=== PATIENT | male | born 1945 | race Caucasian/White ===

== ENCOUNTER 2018-05-30 19:00 | Inpatient (IN) ==
[2018-05-30] MEDS ORDERED: KETOROLAC 30 MG/1 ML VIAL IV STA (19:31)
[2018-05-30 20:26] LABS: Basophils # 0.1 10*3/uL (0.0-0.2); Basophils % 0.6 % (0.0-0.8); Eosinophils # 0.2 10*3/uL (0.0-0.87); Eosinophils % 1.4 % (0.00-10.9); Hematocrit 37.3 VOL% (42.0-52.0); Hemoglobin 11.8 GM/DL (14.0-18.0); Immature Granulocytes % 0.7 %; Immature Granulocytes Absolute 0.09 #; Lymphocytes # 1.5 10*3/uL (1.4-4.0); Lymphocytes % 11.6 % (21.2-54.2); Mean Corpuscular HGB Conc 31.6 GM/DL (32-36); Mean Corpuscular Hemoglobin 30 PG (27-34); Mean Corpuscular Volume 95.6 FL (87-102); Mean Platelet Volume 13.5 FL (9.6-12.0); Monocytes # 0.8 10*3/uL (0.11-0.8); Monocytes % 5.8 % (1.7-12.7); Neutrophils # 10.3 10*3/uL (1.4-7.4); Neutrophils % 79.9 % (38.7-73.9); Platelet Count 235 T/CUMM (130-400); Red Cell Distribution Width 13.2 % (9.3-17.3); White Blood Count 12.9 T/CUMM (4-12)
[2018-05-30 20:47] LABS: Alanine Aminotransferase 30 U/L (16-61); Albumin 3.7 G/DL (3.4-5.0); Alkaline Phosphatase 61 U/L (45-117); Aspartate Amino Transferase 27 U/L (0-37); Bilirubin,Total < 0.39 MG/DL (0.2-1.0); Blood Urea Nitrogen 26 MG/DL (7-18); Calcium 8.5 MG/DL (8.5-10.1); Glucose 257 MG/DL (74-106); Osmolality,Calculated 290.5 MOS/KG (273-304); Sodium 139 MMOL/L (136-145); Total Protein 6.9 G/DL (6.4-8.3)
[2018-05-30 20:54] LABS: Potassium 6.5 MMOL/L (3.5-5.1)
[2018-05-30] MEDS ORDERED: CALCIUM GLUCONATE 2,000 MG in SODIUM CHLORIDE 0.9% 100 ML IV ONE (21:00)
[2018-05-30] MEDS ORDERED: INSULIN REGULAR 100 UNIT/ML IV STA (21:01)
[2018-05-30] MEDS ORDERED: DEXTROSE 50% 25 GM/50 ML VIAL IV STA (21:01)
[2018-05-30] MEDS ORDERED: SODIUM BICARBONATE 50 MEQ/50 ML VIAL IV STA (21:01)
[2018-05-30] MEDS ORDERED: DEXTROSE 50% 25 GM/50 ML SYRINGE IV ONE (21:08)
[2018-05-30] MEDS ORDERED: LORazepam 2 MG/1 ML VIAL IV STA (21:08)
[2018-05-30] MEDS ORDERED: SODIUM BICARBONATE 50 MEQ/50 ML SYRINGE IV ONE (21:08)
[2018-05-30] MEDS ORDERED: CALCIUM GLUCONATE 1,000 MG/10 ML VIAL IV ONE (21:08)
[2018-05-30] MEDS ORDERED: DEXTROSE 50% 25 GM/50 ML VIAL IV PRN (22:04)
[2018-05-30] MEDS ORDERED: ONDANSETRON 4 MG/2 ML VIAL IV PRN (22:04)
[2018-05-30] MEDS ORDERED: GLUCAGON 1 MG VIAL IM PRN (22:04)
[2018-05-30] MEDS ORDERED: SODIUM CHLORIDE 0.9% 1,000 ML IV SCH (22:30)
[2018-05-30] MEDS: SODIUM POLYSTYRENE SULFATE 15 GM/60 ML BOTTLE PO SCH (23:39)
[2018-05-31 03:13] LABS: Apearance,Urine CLEAR (Clear); Bilirubin,Urine Negative (Negative); Blood, Urine Negative (Negative); Glucose,Urine (UA) >=500 mg/dL (Negative); Ketones,Urine Negative (Negative); Nitrite,Urine Negative (Negative); Protein,Urine Negative; Urine Color Yellow (Yellow); Urine Specific Gravity 1.011 (1.001-1.035); Urine Urobilinogen < 2.0 EU/DL (0.2-1.0); WBC,Urine <1 /HPF (0-6)
[2018-05-31] MEDS: SODIUM POLYSTYRENE SULFATE 15 GM/60 ML BOTTLE PO SCH ×4 (04:52→16:55)
[2018-05-31 05:00] LABS: Basophils # 0.1 10*3/uL (0.0-0.2); Basophils % 0.6 % (0.0-0.8); Eosinophils # 0.1 10*3/uL (0.0-0.87); Eosinophils % 1.6 % (0.00-10.9); Hematocrit 35.8 VOL% (42.0-52.0); Hemoglobin 11.3 GM/DL (14.0-18.0); Immature Granulocytes % 0.7 %; Immature Granulocytes Absolute 0.06 #; Lymphocytes # 1.7 10*3/uL (1.4-4.0); Lymphocytes % 18.7 % (21.2-54.2); Mean Corpuscular HGB Conc 31.6 GM/DL (32-36); Mean Corpuscular Hemoglobin 30 PG (27-34); Mean Corpuscular Volume 94.5 FL (87-102); Mean Platelet Volume 13.6 FL (9.6-12.0); Monocytes # 0.7 10*3/uL (0.11-0.8); Monocytes % 7.4 % (1.7-12.7); Neutrophils # 6.3 10*3/uL (1.4-7.4); Platelet Count 216 T/CUMM (130-400); Red Blood Count 3.79 MC/CUMM (3.8-5.5); Red Cell Distribution Width 13.1 % (9.3-17.3); White Blood Count 8.8 T/CUMM (4-12)
[2018-05-31 05:19] LABS: Potassium 5.1 MMOL/L (3.5-5.1)
[2018-05-31] MEDS ORDERED: MORPHINE 4 MG/1 ML VIAL IV PRN (09:04)
[2018-05-31] MEDS ORDERED: ACETAMINOPHEN 325 MG TABLET PO PRN (09:05)
[2018-05-31] MEDS ORDERED: ENOXAPARIN 30 MG/0.3 ML SYRINGE SUBCUT SCH (09:30)
[2018-05-31] MEDS: INSULIN REGULAR 100 UNIT/ML SUBCUT SCH ×4 (10:03→21:14)
[2018-05-31] MEDS: ALFUZOSIN 10 MG TABLET PO SCH (13:05)
[2018-05-31] MEDS: DOCUSATE SODIUM 100 MG CAPSULE PO SCH ×2 (13:06→21:14)
[2018-05-31] MEDS: SODIUM BICARB INJ 100 MEQ in DEXTROSE 5% 1,000 ML IV SCH (13:11)
[2018-05-31] MEDS: oxyCODONE/ACETAMINOPHEN 5-325 MG TABLET PO SCH ×2 (14:20→21:13)
[2018-06-01 05:07] LABS: Calcium 8.4 MG/DL (8.5-10.1); Osmolality,Calculated 294.1 MOS/KG (273-304); Potassium 4.7 MMOL/L (3.5-5.1)
[2018-06-01 05:18] LABS: Basophils # 0.1 10*3/uL (0.0-0.2); Basophils % 0.9 % (0.0-0.8); Eosinophils # 0.3 10*3/uL (0.0-0.87); Hematocrit 34.2 VOL% (42.0-52.0); Hemoglobin 10.8 GM/DL (14.0-18.0); Immature Granulocytes % 0.5 %; Immature Granulocytes Absolute 0.04 #; Lymphocytes # 2.2 10*3/uL (1.4-4.0); Lymphocytes % 29.6 % (21.2-54.2); Mean Corpuscular HGB Conc 31.6 GM/DL (32-36); Mean Corpuscular Hemoglobin 30 PG (27-34); Mean Corpuscular Volume 95.8 FL (87-102); Mean Platelet Volume 13.8 FL (9.6-12.0); Monocytes # 0.6 10*3/uL (0.11-0.8); Monocytes % 7.4 % (1.7-12.7); Neutrophils # 4.4 10*3/uL (1.4-7.4); Neutrophils % 57.6 % (38.7-73.9); Platelet Count 196 T/CUMM (130-400); Red Blood Count 3.57 MC/CUMM (3.8-5.5); Red Cell Distribution Width 13.2 % (9.3-17.3); White Blood Count 7.6 T/CUMM (4-12)
[2018-06-01 05:23] LABS: % Iron Saturation 11.2 % (18-50)
[2018-06-01] MEDS: SODIUM POLYSTYRENE SULFATE 15 GM/60 ML BOTTLE PO SCH ×5 (06:57→23:30)
[2018-06-01 07:27] LABS: Parathyroid Hormone Intact 96.2 PG/ML (18.4-80.1)
[2018-06-01] MEDS: ALFUZOSIN 10 MG TABLET PO SCH (08:50)
[2018-06-01] MEDS: DOCUSATE SODIUM 100 MG CAPSULE PO SCH ×2 (08:51→21:08)
[2018-06-01] MEDS: oxyCODONE/ACETAMINOPHEN 5-325 MG TABLET PO SCH ×2 (08:51→21:08)
[2018-06-01] MEDS: SODIUM BICARB INJ 100 MEQ in DEXTROSE 5% 1,000 ML IV SCH (08:52)
[2018-06-01] MEDS: INSULIN REGULAR 100 UNIT/ML SUBCUT SCH ×4 (09:50→23:29)
[2018-06-01] MEDS ORDERED: DEXTROSE 50% 25 GM/50 ML VIAL IV PRN (12:42)
[2018-06-01] MEDS: IRON SUCROSE 200 MG in SODIUM CHLORIDE 0.9% 100 ML IV SCH (14:49)
[2018-06-02] MEDS: SODIUM POLYSTYRENE SULFATE 15 GM/60 ML BOTTLE PO SCH ×4 (03:47→21:39)
[2018-06-02] MEDS: SODIUM BICARB INJ 100 MEQ in DEXTROSE 5% 1,000 ML IV SCH (05:36)
[2018-06-02] MEDS: ALFUZOSIN 10 MG TABLET PO SCH (09:29)
[2018-06-02] MEDS: INSULIN REGULAR 100 UNIT/ML SUBCUT SCH ×4 (09:29→21:13)
[2018-06-02] MEDS: DOCUSATE SODIUM 100 MG CAPSULE PO SCH ×2 (09:29→21:04)
[2018-06-02] MEDS: oxyCODONE/ACETAMINOPHEN 5-325 MG TABLET PO SCH ×2 (09:29→21:04)
[2018-06-02] MEDS: IRON SUCROSE 200 MG in SODIUM CHLORIDE 0.9% 100 ML IV SCH (09:33)
[2018-06-03] MEDS: SODIUM BICARB INJ 100 MEQ in DEXTROSE 5% 1,000 ML IV SCH ×2 (04:46→10:56)
[2018-06-03] MEDS: SODIUM POLYSTYRENE SULFATE 15 GM/60 ML BOTTLE PO SCH (04:46)
[2018-06-03 05:14] LABS: Calcium 8.7 MG/DL (8.5-10.1); Potassium 3.7 MMOL/L (3.5-5.1)
[2018-06-03] MEDS: ALFUZOSIN 10 MG TABLET PO SCH (08:03)
[2018-06-03] MEDS: oxyCODONE/ACETAMINOPHEN 5-325 MG TABLET PO SCH ×2 (08:04→21:49)
[2018-06-03] MEDS: DOCUSATE SODIUM 100 MG CAPSULE PO SCH ×2 (08:04→21:49)
[2018-06-03] MEDS: INSULIN REGULAR 100 UNIT/ML SUBCUT SCH ×4 (08:08→21:51)
[2018-06-03] MEDS: IRON SUCROSE 200 MG in SODIUM CHLORIDE 0.9% 100 ML IV SCH (10:16)
[2018-06-03 10:22] LABS: Basophils % 0.5 % (0.0-0.8); Eosinophils # 0.2 10*3/uL (0.0-0.87); Eosinophils % 3.1 % (0.00-10.9); Hematocrit 34.6 VOL% (42.0-52.0); Hemoglobin 11.2 GM/DL (14.0-18.0); Immature Granulocytes % 0.6 %; Immature Granulocytes Absolute 0.05 #; Lymphocytes # 1.6 10*3/uL (1.4-4.0); Lymphocytes % 20.7 % (21.2-54.2); Mean Corpuscular HGB Conc 32.4 GM/DL (32-36); Mean Corpuscular Hemoglobin 30 PG (27-34); Mean Corpuscular Volume 93.5 FL (87-102); Mean Platelet Volume 12.8 FL (9.6-12.0); Monocytes # 0.5 10*3/uL (0.11-0.8); Monocytes % 6.7 % (1.7-12.7); Neutrophils # 5.3 10*3/uL (1.4-7.4); Neutrophils % 68.4 % (38.7-73.9); Platelet Count 196 T/CUMM (130-400); Red Cell Distribution Width 12.7 % (9.3-17.3); White Blood Count 7.7 T/CUMM (4-12)
[2018-06-03 13:09] LABS: Apearance,Urine CLEAR (Clear); Bilirubin,Urine Negative (Negative); Blood, Urine Negative (Negative); Glucose,Urine (UA) Negative (Negative); Ketones,Urine 5 mg/dL (Negative); Mucus,Urine Occasional /LPF (Occasional); Nitrite,Urine Negative (Negative); Protein,Urine Negative; Urine Color Amber (Yellow); Urine Specific Gravity 1.031 (1.001-1.035); Urine Urobilinogen < 2.0 EU/DL (0.2-1.0); WBC,Urine 1 /HPF (0-6)
[2018-06-04] MEDS: SODIUM BICARB INJ 100 MEQ in DEXTROSE 5% 1,000 ML IV SCH (01:38)
[2018-06-04 04:44] LABS: Basophils # 0.1 10*3/uL (0.0-0.2); Basophils % 0.8 % (0.0-0.8); Eosinophils # 0.2 10*3/uL (0.0-0.87); Eosinophils % 3.1 % (0.00-10.9); Hematocrit 35.7 VOL% (42.0-52.0); Hemoglobin 11.3 GM/DL (14.0-18.0); Immature Granulocytes % 0.5 %; Immature Granulocytes Absolute 0.04 #; Lymphocytes # 1.6 10*3/uL (1.4-4.0); Lymphocytes % 21.4 % (21.2-54.2); Mean Corpuscular HGB Conc 31.7 GM/DL (32-36); Mean Corpuscular Hemoglobin 30 PG (27-34); Mean Corpuscular Volume 93.7 FL (87-102); Mean Platelet Volume 13.3 FL (9.6-12.0); Monocytes # 0.5 10*3/uL (0.11-0.8); Monocytes % 7.1 % (1.7-12.7); Neutrophils % 67.1 % (38.7-73.9); Platelet Count 214 T/CUMM (130-400); Red Blood Count 3.81 MC/CUMM (3.8-5.5); Red Cell Distribution Width 12.9 % (9.3-17.3); White Blood Count 7.5 T/CUMM (4-12)
[2018-06-04 05:22] LABS: Calcium 8.5 MG/DL (8.5-10.1); Osmolality,Calculated 285.4 MOS/KG (273-304); Potassium 3.4 MMOL/L (3.5-5.1)
[2018-06-04] MEDS: INSULIN REGULAR 100 UNIT/ML SUBCUT SCH ×4 (09:48→21:54)
[2018-06-04] MEDS: DOCUSATE SODIUM 100 MG CAPSULE PO SCH ×2 (09:52→21:54)
[2018-06-04] MEDS: oxyCODONE/ACETAMINOPHEN 5-325 MG TABLET PO SCH ×2 (09:52→21:54)
[2018-06-04] MEDS: amLODIPine 10 MG TABLET PO SCH (09:52)
[2018-06-04] MEDS: ALFUZOSIN 10 MG TABLET PO SCH (09:52)
[2018-06-04] MEDS: IRON SUCROSE 200 MG in SODIUM CHLORIDE 0.9% 100 ML IV SCH (10:00)
[2018-06-04] MEDS ORDERED: TISSUE ADHESIVE 1 EACH APPLICATOR TOP ONE (10:37)
[2018-06-04] MEDS ORDERED: ROPIVACAINE 0.5% 30 ML VIAL ONE (10:37)
[2018-06-04] MEDS: LACTATED RINGERS 1,000 ML IV SCH (11:10)
[2018-06-04] MEDS ORDERED: PROPOFOL 200 MG/20 ML VIAL IV ONE (12:31)
[2018-06-04] MEDS ORDERED: fentaNYL 100 MCG/2 ML VIAL ONE (12:31)
[2018-06-05 05:48] LABS: Basophils # 0.1 10*3/uL (0.0-0.2); Basophils % 0.7 % (0.0-0.8); Eosinophils # 0.4 10*3/uL (0.0-0.87); Eosinophils % 4.3 % (0.00-10.9); Hematocrit 35.9 VOL% (42.0-52.0); Hemoglobin 11.3 GM/DL (14.0-18.0); Immature Granulocytes % 0.8 %; Immature Granulocytes Absolute 0.07 #; Lymphocytes # 1.5 10*3/uL (1.4-4.0); Lymphocytes % 16.7 % (21.2-54.2); Mean Corpuscular HGB Conc 31.5 GM/DL (32-36); Mean Corpuscular Hemoglobin 30 PG (27-34); Mean Corpuscular Volume 94.2 FL (87-102); Mean Platelet Volume 13.3 FL (9.6-12.0); Monocytes # 0.7 10*3/uL (0.11-0.8); Neutrophils # 6.2 10*3/uL (1.4-7.4); Neutrophils % 69.5 % (38.7-73.9); Platelet Count 214 T/CUMM (130-400); Red Blood Count 3.81 MC/CUMM (3.8-5.5); Red Cell Distribution Width 12.9 % (9.3-17.3); White Blood Count 8.9 T/CUMM (4-12)
[2018-06-05 06:12] LABS: Calcium 8.7 MG/DL (8.5-10.1); Osmolality,Calculated 283.4 MOS/KG (273-304); Potassium 3.6 MMOL/L (3.5-5.1)
[2018-06-05] MEDS: ALFUZOSIN 10 MG TABLET PO SCH (10:09)
[2018-06-05] MEDS: amLODIPine 10 MG TABLET PO SCH (10:10)
[2018-06-05] MEDS: DOCUSATE SODIUM 100 MG CAPSULE PO SCH ×2 (10:10→21:36)
[2018-06-05] MEDS: oxyCODONE/ACETAMINOPHEN 5-325 MG TABLET PO SCH ×2 (10:10→21:36)
[2018-06-05] MEDS: IRON SUCROSE 200 MG in SODIUM CHLORIDE 0.9% 100 ML IV SCH (10:12)
[2018-06-05] MEDS: INSULIN REGULAR 100 UNIT/ML SUBCUT SCH ×4 (10:21→21:36)
[2018-06-05] MEDS: LACTATED RINGERS 1,000 ML IV SCH (13:10)
[2018-06-06] MEDS: DOCUSATE SODIUM 100 MG CAPSULE PO SCH (10:07)
[2018-06-06] MEDS: ALFUZOSIN 10 MG TABLET PO SCH (10:08)
[2018-06-06] MEDS: oxyCODONE/ACETAMINOPHEN 5-325 MG TABLET PO SCH (10:08)
[2018-06-06] MEDS: amLODIPine 10 MG TABLET PO SCH (10:09)
[2018-06-06] MEDS: INSULIN REGULAR 100 UNIT/ML SUBCUT SCH ×2 (11:02→13:47)
[2018-06-06 12:26] VITALS: BP 136/63
[2018-06-06 17:45] LABS: Bilirubin,Total 0.4 MG/DL (0.2-1.0); Calcium 9.2 MG/DL (8.5-10.1); Osmolality,Calculated 285.4 MOS/KG (273-304); Potassium 3.5 MMOL/L (3.5-5.1); Total Protein 6.9 G/DL (6.4-8.3)
[2018-06-07 06:04] LABS: Immunoglobulin A (Chem) 256 MG/DL (70-400); Immunoglobulin G (Chem) 596 MG/DL (700-1600); Immunoglobulin M (Chem) 43 MG/DL (40-230); Total Protein (Chem) 6.9 G/DL (6.4-8.3)
[2018-06-07 09:24] LABS: Albumin (SPE) 4.3 G/DL (3.2-5.3); Alpha 1 (SPE) 0.3 G/DL (0.1-0.4); Alpha 1 (SPE) Rel % 3.8 %; Alpha 2 (SPE) 0.9 G/DL (0.4-1.0); Alpha 2 (SPE) Rel % 12.8 %; Beta (SPE) 0.9 G/DL (0.5-1.1); Beta (SPE) Rel % 13.2 %; Gamma (SPE) 0.6 G/DL (0.7-1.7); Gamma (SPE) Rel % 8.2 %
[2018-06-08 10:37] LABS: Immuno Free Light Chain Kappa 1.89 MG/DL (0.33-1.94); Immuno Free Light Chain Lambda 1.52 MG/DL (0.57-2.63); Immuno Free Light Chain Ratio 1.24 MG/DL (0.26-1.65)
== END 2018-06-06 16:51 | disposition swing bed (61) | DRG 478 ==
LOC: EDBD → EDUNIT# → N.EDINP 19:00 → N.ED 19:00 → N.TELES 22:19
PROVIDERS: ADMIT Internal Medicine; ATTEND Internal Medicine

== ENCOUNTER 2021-08-11 15:16 | Inpatient (IN) ==
[2021-08-11] MEDS ORDERED: SODIUM CHLORIDE 0.9% 1,000 ML IV STA (19:58)
[2021-08-11 21:14] LABS: Basophils % 0.5 % (0.0-0.8); Eosinophils % 0.3 % (0.00-10.9); Hematocrit 38.4 VOL% (42.0-52.0); Hemoglobin 12.5 GM/DL (14.0-18.0); Immature Granulocytes % 0.3 %; Immature Granulocytes Absolute 0.01 #; Lymphocytes # 0.9 10*3/uL (1.4-4.0); Mean Corpuscular HGB Conc 32.6 GM/DL (32-36); Mean Corpuscular Volume 92.3 FL (87-102); Mean Platelet Volume 13.3 FL (9.6-12.0); Monocytes % 14.7 % (1.7-12.7); Neutrophils % 60.2 % (38.7-73.9); Platelet Count 153 T/CUMM (130-400); Red Blood Count 4.16 MC/CUMM (3.8-5.5); Red Cell Distribution Width 12.3 % (9.3-17.3); White Blood Count 3.9 T/CUMM (4-12)
[2021-08-11 21:20] LABS: Bacteria,Urine Occasional /HPF (Few); Bilirubin,Urine Negative (Negative); Blood, Urine Moderate mg/dL (Negative); Glucose,Urine (UA) 150 mg/dL (Negative); Ketones,Urine 5 mg/dL (Negative); Mucus,Urine Occasional /LPF (Occasional); Nitrite,Urine Negative (Negative); Protein,Urine 30 MG/DL; RBC,Urine 4 /HPF (0-4); Squamous Epithelial Cell,Urine Occasional /HPF (0-10); Urine Appearance CLEAR (Clear); Urine Color Yellow (Yellow); Urine Specific Gravity 1.015 (1.001-1.035); Urine Urobilinogen < 2.0 EU/DL (<2.0)
[2021-08-11 21:36] LABS: Alanine Aminotransferase 58 U/L (16-61); Albumin 3.2 G/DL (3.4-5.0); Alkaline Phosphatase 61 U/L (45-117); Aspartate Amino Transferase 134 U/L (0-37); Bilirubin,Total < 0.39 MG/DL (0.20-1.00); Blood Urea Nitrogen 78 MG/DL (7-18); Calcium 8.4 MG/DL (8.5-10.1); Carbon Dioxide 25 MMOL/L (21-32); Estimated Glom Filtration Rate 25 ML/MIN; Glucose 262 MG/DL (74-106); Osmolality,Calculated 314.1 MOS/KG (273-304); Potassium 4.7 MMOL/L (3.5-5.1); Sodium 142 MMOL/L (136-145); Total Protein 6.9 G/DL (6.4-8.2)
[2021-08-11 21:47] LABS: CKMB % 0.9 %; High Sensitive Troponin I* 38.3 ng/L (0-78)
[2021-08-11 22:11] LABS: Barbiturates Screen,Urine Negative (Negative); Benzodiazepines Screen,Urine Negative (Negative); Cannabinoid Screen,Urine Negative (Negative); Opiate Screen,Urine Negative (Negative); Phencyclidine Screen,Urine Negative (Negative)
[2021-08-11 23:43] LABS: ABG Base Excess -2.3 MMOL/L (-2.5-2.5); ABG HCO3 22.5 MMOL/L (20-26); ABG Oxygen Saturation 97.6 % (95-100); ABG PCO2 41.4 MM HG (35-48); ABG PH 7.355 (7.35-7.45); ABG TCO2 20.5 MMOL/L (23-27)
[2021-08-12] MEDS ORDERED: NICOTINE 21 MG/24 HR PATCH TRANSDERM PRN (00:02)
[2021-08-12] MEDS ORDERED: GLUCAGON 1 MG VIAL IM PRN ×2 (00:02)
[2021-08-12] MEDS ORDERED: ZALEPLON 5 MG CAPSULE PO PRN (00:02)
[2021-08-12] MEDS ORDERED: DEXTROSE 10% 250 ML BAG IV PRN (00:02)
[2021-08-12] MEDS ORDERED: diphenhydrAMINE CAP 25 MG CAPSULE PO PRN (00:02)
[2021-08-12] MEDS ORDERED: BISACODYL 5 MG TABLET PO PRN (00:02)
[2021-08-12] MEDS ORDERED: ALBUTEROL/IPRATROPIUM 3 ML NEB RESP TX PRN (00:02)
[2021-08-12] MEDS ORDERED: DEXTROSE 50% 25 GM/50 ML VIAL IV PRN (00:02)
[2021-08-12] MEDS ORDERED: hydrALAZINE 20 MG/1 ML VIAL IV PRN (00:02)
[2021-08-12] MEDS: SODIUM CHLORIDE 0.9% 1,000 ML IV SCH ×3 (00:35→22:30)
[2021-08-12] MEDS ORDERED: SODIUM CHLORIDE 0.9% 1,000 ML IV STA (00:42)
[2021-08-12 02:45] LABS: Basophils % 0.6 % (0.0-0.8); Eosinophils % 0.9 % (0.00-10.9); Hematocrit 38.1 VOL% (42.0-52.0); Hemoglobin 12.5 GM/DL (14.0-18.0); Immature Granulocytes % 0.3 %; Immature Granulocytes Absolute 0.01 #; Lymphocytes # 0.9 10*3/uL (1.4-4.0); Lymphocytes % 24.9 % (21.2-54.2); Mean Corpuscular HGB Conc 32.8 GM/DL (32-36); Mean Corpuscular Volume 92.9 FL (87-102); Mean Platelet Volume 13.4 FL (9.6-12.0); Monocytes % 12.6 % (1.7-12.7); Neutrophils % 60.7 % (38.7-73.9); Platelet Count 145 T/CUMM (130-400); Red Cell Distribution Width 12.4 % (9.3-17.3); White Blood Count 3.5 T/CUMM (4-12)
[2021-08-12 03:09] LABS: Calcium 8.4 MG/DL (8.5-10.1); Potassium 4.3 MMOL/L (3.5-5.1); Thyroid Stimulating Hormone 0.34 uIU/ml (0.358-3.74)
[2021-08-12 07:22] LABS: Free T4 (Free Thyroxine) 1.3 NG/DL (0.76-1.46)
[2021-08-12] MEDS: INSULIN LISPRO 100 UNIT/ML SUBCUT SCH ×4 (08:25→20:58)
[2021-08-12] MEDS: DEXAMETHASONE 10 MG/1 ML VIAL IV SCH (12:10)
[2021-08-12] MEDS: INSULIN GLARGINE 100 UNIT/ML SUBCUT SCH (12:13)
[2021-08-12] MEDS: PANTOPRAZOLE 40 MG TABLET PO SCH (12:15)
[2021-08-12] MEDS: amLODIPine 10 MG TABLET PO SCH (12:15)
[2021-08-12] MEDS: HEPARIN 5,000 UNIT/1 ML VIAL SUBCUT SCH ×2 (12:15→20:55)
[2021-08-12] MEDS: SERTRALINE 25 MG TABLET PO SCH (15:27)
[2021-08-12] MEDS: ALFUZOSIN 10 MG TABLET PO SCH (15:27)
[2021-08-12] MEDS: ONDANSETRON 4 MG/2 ML VIAL IV PRN (20:54)
[2021-08-12] MEDS ORDERED: SIMVASTATIN 10 MG TABLET PO SCH (21:00)
[2021-08-13] MEDS: ONDANSETRON 4 MG/2 ML VIAL IV PRN ×2 (05:58→08:18)
[2021-08-13 06:17] LABS: Basophils % 0.4 % (0.0-0.8); Hematocrit 40.7 VOL% (42.0-52.0); Hemoglobin 12.9 GM/DL (14.0-18.0); Immature Granulocytes % 0.4 %; Immature Granulocytes Absolute 0.02 #; Lymphocytes # 1.2 10*3/uL (1.4-4.0); Lymphocytes % 25.5 % (21.2-54.2); Mean Corpuscular HGB Conc 31.7 GM/DL (32-36); Monocytes % 15.4 % (1.7-12.7); NRBC # 0.02 10*3/uL; Neutrophils % 58.3 % (38.7-73.9); Platelet Count 114 T/CUMM (130-400); Red Blood Count 4.24 MC/CUMM (3.8-5.5); Red Cell Distribution Width 12.6 % (9.3-17.3); White Blood Count 4.8 T/CUMM (4-12)
[2021-08-13 07:06] LABS: Calcium 8.2 MG/DL (8.5-10.1); Ferritin 368.9 ng/mL (26-388); Osmolality,Calculated 307.4 MOS/KG (273-304)
[2021-08-13 08:01] LABS: Platelet Estimate Adequate
[2021-08-13 08:02] LABS: Macrocytosis Slight
[2021-08-13] MEDS: SODIUM CHLORIDE 0.9% 1,000 ML IV SCH (08:22)
[2021-08-13] MEDS ORDERED: SODIUM CHLORIDE 0.45% 1,000 ML IV SCH (09:00)
[2021-08-13] MEDS: DEXAMETHASONE 10 MG/1 ML VIAL IV SCH (10:05)
[2021-08-13] MEDS: INSULIN LISPRO 100 UNIT/ML SUBCUT SCH ×4 (10:05→22:30)
[2021-08-13] MEDS: INSULIN GLARGINE 100 UNIT/ML SUBCUT SCH (10:05)
[2021-08-13] MEDS: HEPARIN 5,000 UNIT/1 ML VIAL SUBCUT SCH ×2 (10:06→22:30)
[2021-08-13] MEDS: amLODIPine 10 MG TABLET PO SCH (10:06)
[2021-08-13] MEDS: SERTRALINE 25 MG TABLET PO SCH (10:06)
[2021-08-13] MEDS: PANTOPRAZOLE 40 MG TABLET PO SCH (10:06)
[2021-08-13] MEDS: ALFUZOSIN 10 MG TABLET PO SCH (10:06)
[2021-08-13] MEDS: FLUoxetine 20 MG CAPSULE PO SCH ×2 (16:09→16:13)
[2021-08-13] MEDS: SODIUM BICARB INJ 150 MEQ in DEXTROSE 5% NACL 0.45% 1,000 ML IV SCH (17:11)
[2021-08-14] MEDS: SODIUM BICARB INJ 150 MEQ in DEXTROSE 5% NACL 0.45% 1,000 ML IV SCH ×2 (05:57→17:10)
[2021-08-14 06:02] LABS: Basophils % 0.3 % (0.0-0.8); Eosinophils % 0.3 % (0.00-10.9); Hematocrit 35.3 VOL% (42.0-52.0); Hemoglobin 11.3 GM/DL (14.0-18.0); Immature Granulocytes % 0.6 %; Immature Granulocytes Absolute 0.02 #; Lymphocytes # 0.7 10*3/uL (1.4-4.0); Lymphocytes % 19.9 % (21.2-54.2); Mean Corpuscular Volume 94.6 FL (87-102); Monocytes % 8.3 % (1.7-12.7); Neutrophils % 70.6 % (38.7-73.9); Platelet Count 119 T/CUMM (130-400); Red Blood Count 3.73 MC/CUMM (3.8-5.5); Red Cell Distribution Width 12.4 % (9.3-17.3); White Blood Count 3.6 T/CUMM (4-12)
[2021-08-14 06:29] LABS: Calcium 8.3 MG/DL (8.5-10.1)
[2021-08-14] MEDS: INSULIN LISPRO 100 UNIT/ML SUBCUT SCH ×4 (09:48→21:21)
[2021-08-14] MEDS: HEPARIN 5,000 UNIT/1 ML VIAL SUBCUT SCH ×2 (09:58→21:21)
[2021-08-14] MEDS: INSULIN GLARGINE 100 UNIT/ML SUBCUT SCH (09:59)
[2021-08-14] MEDS: SERTRALINE 25 MG TABLET PO SCH (10:00)
[2021-08-14] MEDS: ALFUZOSIN 10 MG TABLET PO SCH (10:00)
[2021-08-14] MEDS: PANTOPRAZOLE 40 MG TABLET PO SCH (10:00)
[2021-08-14] MEDS: DEXAMETHASONE 10 MG/1 ML VIAL IV SCH (10:00)
[2021-08-14] MEDS ORDERED: AZITHROMYCIN 250 MG TABLET PO ONE ×3 (10:50→21:00)
[2021-08-14] MEDS: cefTRIAXone 1,000 MG in SODIUM CHLORIDE 0.9% 100 ML IV SCH (12:32)
[2021-08-15] MEDS: SODIUM BICARB INJ 150 MEQ in DEXTROSE 5% NACL 0.45% 1,000 ML IV SCH (02:44)
[2021-08-15 06:52] LABS: Hematocrit 33.6 VOL% (42.0-52.0); Hemoglobin 11.2 GM/DL (14.0-18.0); Immature Granulocytes % 0.9 %; Immature Granulocytes Absolute 0.03 #; Lymphocytes # 0.6 10*3/uL (1.4-4.0); Lymphocytes % 17.2 % (21.2-54.2); Mean Corpuscular HGB Conc 33.3 GM/DL (32-36); Mean Corpuscular Volume 90.1 FL (87-102); Mean Platelet Volume 13.5 FL (9.6-12.0); Monocytes % 9.4 % (1.7-12.7); Neutrophils % 72.5 % (38.7-73.9); Platelet Count 107 T/CUMM (130-400); Red Blood Count 3.73 MC/CUMM (3.8-5.5); Red Cell Distribution Width 11.9 % (9.3-17.3); White Blood Count 3.2 T/CUMM (4-12)
[2021-08-15 07:14] LABS: Calcium 7.8 MG/DL (8.5-10.1); Osmolality,Calculated 289.4 MOS/KG (273-304); Potassium 3.8 MMOL/L (3.5-5.1)
[2021-08-15 07:22] LABS: Hypochromia 1+; Microcytosis 2+; Platelet Estimate Adequate
[2021-08-15] MEDS: INSULIN LISPRO 100 UNIT/ML SUBCUT SCH ×4 (09:28→21:50)
[2021-08-15] MEDS: INSULIN GLARGINE 100 UNIT/ML SUBCUT SCH (09:28)
[2021-08-15] MEDS: DEXAMETHASONE 10 MG/1 ML VIAL IV SCH (11:13)
[2021-08-15] MEDS: ALFUZOSIN 10 MG TABLET PO SCH (11:14)
[2021-08-15] MEDS: cefTRIAXone 1,000 MG in SODIUM CHLORIDE 0.9% 100 ML IV SCH (11:14)
[2021-08-15] MEDS: AZITHROMYCIN 250 MG TABLET PO SCH (11:14)
[2021-08-15] MEDS: SERTRALINE 25 MG TABLET PO SCH (11:14)
[2021-08-15] MEDS: PANTOPRAZOLE 40 MG TABLET PO SCH (11:15)
[2021-08-15] MEDS: HEPARIN 5,000 UNIT/1 ML VIAL SUBCUT SCH ×2 (11:15→21:50)
[2021-08-15] MEDS: guaiFENesin/DM ER 600-30 MG TABLET PO PRN (21:50)
[2021-08-15] MEDS: ACETAMINOPHEN 325 MG TABLET PO PRN (21:50)
[2021-08-15] MEDS: ONDANSETRON 4 MG/2 ML VIAL IV PRN (22:16)
[2021-08-16] MEDS: SODIUM BICARB INJ 150 MEQ in DEXTROSE 5% NACL 0.45% 1,000 ML IV SCH ×4 (02:46→22:56)
[2021-08-16 05:27] LABS: Basophils % 0.1 % (0.0-0.8); Hematocrit 37.5 VOL% (42.0-52.0); Hemoglobin 12.5 GM/DL (14.0-18.0); Immature Granulocytes Absolute 0.07 #; Lymphocytes # 0.4 10*3/uL (1.4-4.0); Lymphocytes % 6.1 % (21.2-54.2); Mean Corpuscular HGB Conc 33.3 GM/DL (32-36); Mean Corpuscular Volume 90.4 FL (87-102); Monocytes % 7.9 % (1.7-12.7); Neutrophils % 84.9 % (38.7-73.9); Red Blood Count 4.15 MC/CUMM (3.8-5.5); Red Cell Distribution Width 11.9 % (9.3-17.3); White Blood Count 6.9 T/CUMM (4-12)
[2021-08-16 05:33] LABS: Platelet Count 131 T/CUMM (130-400)
[2021-08-16 06:05] LABS: Calcium 8.3 MG/DL (8.5-10.1); Ferritin 642.2 ng/mL (26-388); Osmolality,Calculated 289.5 MOS/KG (273-304); Potassium 3.9 MMOL/L (3.5-5.1)
[2021-08-16] MEDS: PANTOPRAZOLE 40 MG TABLET PO SCH (10:43)
[2021-08-16] MEDS: AZITHROMYCIN 250 MG TABLET PO SCH (10:43)
[2021-08-16] MEDS: ALFUZOSIN 10 MG TABLET PO SCH (10:43)
[2021-08-16] MEDS: SERTRALINE 25 MG TABLET PO SCH (10:44)
[2021-08-16] MEDS: INSULIN GLARGINE 100 UNIT/ML SUBCUT SCH (10:44)
[2021-08-16] MEDS: INSULIN LISPRO 100 UNIT/ML SUBCUT SCH ×4 (10:45→22:36)
[2021-08-16] MEDS: HEPARIN 5,000 UNIT/1 ML VIAL SUBCUT SCH ×2 (10:46→22:35)
[2021-08-16] MEDS ORDERED: TUBERCULIN SKIN TEST 0.1 ML SYRINGE INTRADERM ONE (11:00)
[2021-08-16] MEDS: cefTRIAXone 1,000 MG in SODIUM CHLORIDE 0.9% 100 ML IV SCH (13:02)
[2021-08-16] MEDS: DEXAMETHASONE 10 MG/1 ML VIAL IV SCH (13:06)
[2021-08-16] MEDS: amLODIPine 5 MG TABLET PO SCH (13:08)
[2021-08-16] MEDS: guaiFENesin/DM ER 600-30 MG TABLET PO PRN (22:35)
[2021-08-16] MEDS: ACETAMINOPHEN 325 MG TABLET PO PRN (22:35)
[2021-08-16] MEDS: ONDANSETRON 4 MG/2 ML VIAL IV PRN (22:36)
[2021-08-16] MEDS: ALBUTEROL INHALER 18 GM INH PRN (22:37)
[2021-08-17 09:46] LABS: Basophils % 0.1 % (0.0-0.8); Hematocrit 35.2 VOL% (42.0-52.0); Hemoglobin 11.7 GM/DL (14.0-18.0); Immature Granulocytes % 1.3 %; Immature Granulocytes Absolute 0.09 #; Lymphocytes # 0.4 10*3/uL (1.4-4.0); Lymphocytes % 6.4 % (21.2-54.2); Mean Corpuscular HGB Conc 33.2 GM/DL (32-36); Mean Platelet Volume 14.1 FL (9.6-12.0); Monocytes % 5.7 % (1.7-12.7); Neutrophils % 86.5 % (38.7-73.9); Red Blood Count 3.91 MC/CUMM (3.8-5.5); Red Cell Distribution Width 11.9 % (9.3-17.3); White Blood Count 6.7 T/CUMM (4-12)
[2021-08-17 09:47] LABS: Platelet Count 123 T/CUMM (130-400)
[2021-08-17 10:04] LABS: Ferritin 942.6 ng/mL (26-388); Osmolality,Calculated 293.4 MOS/KG (273-304)
[2021-08-17] MEDS: SERTRALINE 25 MG TABLET PO SCH (10:08)
[2021-08-17] MEDS: PANTOPRAZOLE 40 MG TABLET PO SCH (10:08)
[2021-08-17] MEDS: amLODIPine 5 MG TABLET PO SCH (10:08)
[2021-08-17] MEDS: AZITHROMYCIN 250 MG TABLET PO SCH (10:08)
[2021-08-17] MEDS: HEPARIN 5,000 UNIT/1 ML VIAL SUBCUT SCH ×2 (10:08→21:21)
[2021-08-17] MEDS: ALFUZOSIN 10 MG TABLET PO SCH (10:08)
[2021-08-17] MEDS: INSULIN GLARGINE 100 UNIT/ML SUBCUT SCH (10:09)
[2021-08-17] MEDS: INSULIN LISPRO 100 UNIT/ML SUBCUT SCH ×4 (10:09→21:22)
[2021-08-17] MEDS: DEXAMETHASONE 10 MG/1 ML VIAL IV SCH (10:40)
[2021-08-17] MEDS: cefTRIAXone 1,000 MG in SODIUM CHLORIDE 0.9% 100 ML IV SCH (13:20)
[2021-08-17] MEDS ORDERED: FUROSEMIDE 40 MG/4 ML VIAL IV ONE (16:27)
[2021-08-17] MEDS: POTASSIUM CHLORIDE 20 MEQ TABLET PO SCH ×2 (17:58→19:39)
[2021-08-17] MEDS: PIPERACILLIN/TAZOBACTAM 3,375 MG in SODIUM CHLORIDE 0.9% 100 ML IV SCH (18:34)
[2021-08-17] MEDS ORDERED: POTASSIUM CHLORIDE 20 MEQ TABLET PO SCH (19:30)
[2021-08-17] MEDS: ACETAMINOPHEN 325 MG TABLET PO PRN (21:21)
[2021-08-17] MEDS: guaiFENesin/DM ER 600-30 MG TABLET PO PRN (21:21)
[2021-08-17] MEDS: ALBUTEROL INHALER 18 GM INH PRN (21:23)
[2021-08-18] MEDS: PIPERACILLIN/TAZOBACTAM 3,375 MG in SODIUM CHLORIDE 0.9% 100 ML IV SCH ×2 (00:34→12:12)
[2021-08-18 05:42] LABS: Basophils % 0.1 % (0.0-0.8); Hematocrit 36.5 VOL% (42.0-52.0); Immature Granulocytes % 1.6 %; Immature Granulocytes Absolute 0.11 #; Lymphocytes # 0.6 10*3/uL (1.4-4.0); Mean Corpuscular HGB Conc 32.9 GM/DL (32-36); Mean Corpuscular Volume 91.7 FL (87-102); Mean Platelet Volume 13.7 FL (9.6-12.0); Monocytes % 6.4 % (1.7-12.7); Neutrophils % 83.9 % (38.7-73.9); Platelet Count 129 T/CUMM (130-400); Red Blood Count 3.98 MC/CUMM (3.8-5.5); White Blood Count 6.9 T/CUMM (4-12)
[2021-08-18 05:58] LABS: Calcium 7.9 MG/DL (8.5-10.1); Ferritin 1018.4 ng/mL (26-388); Osmolality,Calculated 296.8 MOS/KG (273-304); Potassium 3.8 MMOL/L (3.5-5.1)
[2021-08-18 07:19] VITALS: BP 165/45
[2021-08-18] MEDS: PANTOPRAZOLE 40 MG TABLET PO SCH (09:58)
[2021-08-18] MEDS: INSULIN GLARGINE 100 UNIT/ML SUBCUT SCH (09:59)
[2021-08-18] MEDS: DEXAMETHASONE 10 MG/1 ML VIAL IV SCH (09:59)
[2021-08-18] MEDS: ALFUZOSIN 10 MG TABLET PO SCH (09:59)
[2021-08-18] MEDS: SERTRALINE 25 MG TABLET PO SCH (09:59)
[2021-08-18] MEDS: HEPARIN 5,000 UNIT/1 ML VIAL SUBCUT SCH (10:00)
[2021-08-18] MEDS: amLODIPine 5 MG TABLET PO SCH (10:00)
[2021-08-18] MEDS: INSULIN LISPRO 100 UNIT/ML SUBCUT SCH (12:12)
[2021-08-18] MEDS ORDERED: LACTATED RINGERS 1,000 ML IV SCH (16:00)
[2021-08-18] MEDS ORDERED: PIPERACILLIN/TAZOBACTAM 3,375 MG VIAL IV ONE (19:54)
[2021-08-18] MEDS ORDERED: SODIUM BICARBONATE 650 MG TABLET PO SCH (21:00)
== END 2021-08-18 11:15 | DRG 177 ==
LOC: EDUNIT# → EDBD → N.ED 15:16 → SUATTDRO 08-12 00:02 → N.EDINP 08-12 00:02 → N.5E 08-12 12:53
PROVIDERS: ADMIT Hospitalist; ATTEND Internal Medicine

== ENCOUNTER 2021-08-18 12:54 | Inpatient (IN) ==
[2021-08-18 14:08] LABS: Osmolality,Calculated 294.1 MOS/KG (273-304); Potassium 3.4 MMOL/L (3.5-5.1)
[2021-08-18 14:21] LABS: Basophils % 0.1 % (0.0-0.8); Hematocrit 33.4 VOL% (42.0-52.0); Hemoglobin 10.9 GM/DL (14.0-18.0); Immature Granulocytes % 1.8 %; Immature Granulocytes Absolute 0.13 #; Lymphocytes # 0.3 10*3/uL (1.4-4.0); Lymphocytes % 4.6 % (21.2-54.2); Mean Corpuscular HGB Conc 32.6 GM/DL (32-36); Mean Platelet Volume 13.7 FL (9.6-12.0); Monocytes % 6.8 % (1.7-12.7); Neutrophils % 86.7 % (38.7-73.9); Platelet Count 142 T/CUMM (130-400); Red Blood Count 3.63 MC/CUMM (3.8-5.5); White Blood Count 7.3 T/CUMM (4-12)
[2021-08-18 14:43] LABS: Lymphocytes 5 % (20-55); Platelet Estimate Normal; Polychromasia Few; Segmented Neutrophils 91 % (50-85); Total Cells Counted 100
[2021-08-18 14:44] LABS: Atypical Lymphocytes Few
[2021-08-18] MEDS ORDERED: ACETAMINOPHEN 500 MG TABLET ONE (14:50)
[2021-08-18] MEDS ORDERED: ONDANSETRON 4 MG/2 ML VIAL IV PRN (15:03)
[2021-08-18] MEDS ORDERED: ACETAMINOPHEN 500 MG TABLET PO STA (15:03)
[2021-08-18] MEDS ORDERED: DEXTROSE 10% 250 ML BAG IV PRN (15:03)
[2021-08-18] MEDS ORDERED: GLUCAGON 1 MG VIAL IM PRN (15:03)
[2021-08-18] MEDS ORDERED: BISACODYL 5 MG TABLET PO PRN (15:03)
[2021-08-18] MEDS ORDERED: ALUMINUM/MAGNES/SIMETH MAX STR 30 ML UDCUP PO PRN (15:03)
[2021-08-18] MEDS ORDERED: LACTULOSE 20 GM/30 ML UDCUP PO PRN (15:03)
[2021-08-18] MEDS ORDERED: SIMETHICONE CHEW 125 MG TABLET PO PRN (15:03)
[2021-08-18] MEDS ORDERED: POTASSIUM CHLORIDE 20 MEQ TABLET PO STA (15:09)
[2021-08-18] MEDS ORDERED: PIPERACILLIN/TAZOBACTAM 2,250 MG in SODIUM CHLORIDE 0.9% 100 ML IV SCH (15:30)
[2021-08-18] MEDS ORDERED: LACTATED RINGERS 1,000 ML IV SCH (16:00)
[2021-08-18] MEDS: HEPARIN 5,000 UNIT/1 ML VIAL SUBCUT SCH (16:51)
[2021-08-18 17:44] LABS: Alanine Aminotransferase 28 U/L (16-61); Albumin 1.4 G/DL (3.4-5.0); Alkaline Phosphatase 54 U/L (45-117); Aspartate Amino Transferase 48 U/L (0-37); Bilirubin,Direct < 0.100 MG/DL (0.0-0.20); Bilirubin,Indirect 0.3 MG/DL (0.0-1.0); Total Protein 5.3 G/DL (6.4-8.2)
[2021-08-18] MEDS: INSULIN REGULAR 100 UNIT/ML SUBCUT SCH ×2 (18:12→22:33)
[2021-08-18] MEDS: DOCUSATE SODIUM 100 MG CAPSULE PO SCH (20:55)
[2021-08-18] MEDS: FAMOTIDINE 20 MG TABLET PO SCH (20:55)
[2021-08-18] MEDS: SIMVASTATIN 10 MG TABLET PO SCH (20:55)
[2021-08-18] MEDS: ASCORBIC ACID 500 MG TABLET PO SCH (20:55)
[2021-08-18] MEDS: AMOXICILLIN/CLAV 875 MG TABLET PO SCH (20:56)
[2021-08-18] MEDS: SODIUM BICARBONATE 650 MG TABLET PO SCH (20:56)
[2021-08-19] MEDS ORDERED: FUROSEMIDE 40 MG/4 ML VIAL ONE (01:13)
[2021-08-19] MEDS ORDERED: FUROSEMIDE 40 MG/4 ML VIAL IV ONE ×2 (01:13→08:45)
[2021-08-19] MEDS ORDERED: methylPREDNISolone SOD SUC 125 MG/2 ML VIAL ONE (01:14)
[2021-08-19] MEDS ORDERED: methylPREDNISolone SOD SUC 125 MG/2 ML VIAL IV ONE (01:14)
[2021-08-19] MEDS: HEPARIN 5,000 UNIT/1 ML VIAL SUBCUT SCH (03:52)
[2021-08-19] MEDS: ACETAMINOPHEN 325 MG TABLET PO PRN (04:19)
[2021-08-19 05:29] LABS: Basophils % 0.1 % (0.0-0.8); Hematocrit 35.4 VOL% (42.0-52.0); Hemoglobin 11.5 GM/DL (14.0-18.0); Immature Granulocytes % 2.4 %; Immature Granulocytes Absolute 0.19 #; Lymphocytes # 0.3 10*3/uL (1.4-4.0); Mean Corpuscular HGB Conc 32.5 GM/DL (32-36); Mean Corpuscular Volume 93.2 FL (87-102); Mean Platelet Volume 13.9 FL (9.6-12.0); Neutrophils % 88.5 % (38.7-73.9); Platelet Count 158 T/CUMM (130-400); Red Cell Distribution Width 12.1 % (9.3-17.3)
[2021-08-19 05:55] LABS: Albumin 1.8 G/DL (3.4-5.0); Bilirubin,Total 0.4 MG/DL (0.20-1.00); Calcium 8.1 MG/DL (8.5-10.1); Osmolality,Calculated 287.3 MOS/KG (273-304); Potassium 3.5 MMOL/L (3.5-5.1)
[2021-08-19 06:03] LABS: Ferritin 1301.3 ng/mL (26-388)
[2021-08-19 06:14] LABS: Anisocytosis 1+; Band Neutrophils 14 % (0-10); Lymphocytes 3 % (20-55); Nucleated Red Blood Cells 1 (0-5); Platelet Estimate Normal; Segmented Neutrophils 79 % (50-85); Total Cells Counted 100
[2021-08-19 06:15] LABS: Macrocytosis Slight
[2021-08-19] MEDS: ALBUTEROL INHALER 18 GM INH SCH ×3 (06:41→18:33)
[2021-08-19] MEDS: DEXAMETHASONE 4 MG TABLET PO SCH (09:12)
[2021-08-19 09:13] LABS: ABG Base Excess 11.4 MMOL/L (-2.5-2.5); ABG HCO3 34.8 MMOL/L (20-26); ABG Oxygen Saturation 79.8 % (95-100); ABG PCO2 45.1 MM HG (35-48); ABG PH 7.511 (7.35-7.45); ABG PO2 43.4 MM HG (80-95); ABG TCO2 31.7 MMOL/L (23-27)
[2021-08-19] MEDS: AMOXICILLIN/CLAV 875 MG TABLET PO SCH ×2 (09:13→23:04)
[2021-08-19] MEDS: SODIUM BICARBONATE 650 MG TABLET PO SCH ×2 (09:13→23:05)
[2021-08-19] MEDS: SERTRALINE 25 MG TABLET PO SCH (09:13)
[2021-08-19] MEDS: ASCORBIC ACID 500 MG TABLET PO SCH ×2 (09:13→23:05)
[2021-08-19] MEDS: DOCUSATE SODIUM 100 MG CAPSULE PO SCH ×2 (09:14→23:04)
[2021-08-19] MEDS: FAMOTIDINE 20 MG TABLET PO SCH ×2 (09:14→23:05)
[2021-08-19] MEDS: ZINC GLUCONATE 50 MG TABLET PO SCH (09:14)
[2021-08-19] MEDS: INSULIN REGULAR 100 UNIT/ML SUBCUT SCH ×4 (09:15→23:04)
[2021-08-19] MEDS: CHOLECALCIFEROL 5,000 UNIT TABLET PO SCH (09:15)
[2021-08-19] MEDS: amLODIPine 5 MG TABLET PO SCH (09:15)
[2021-08-19] MEDS: ALFUZOSIN 10 MG TABLET PO SCH (09:15)
[2021-08-19 13:19] LABS: Bilirubin,Urine Negative (Negative); Blood, Urine Moderate mg/dL (Negative); Glucose,Urine (UA) Negative (Negative); Hyaline Casts,Urine 4 /LPF (0-3); Ketones,Urine 5 mg/dL (Negative); Mucus,Urine Occasional /LPF (Occasional); Nitrite,Urine Negative (Negative); Protein,Urine 30 MG/DL; RBC,Urine 3 /HPF (0-4); Urine Appearance CLEAR (Clear); Urine Color Yellow (Yellow); Urine Specific Gravity 1.009 (1.001-1.035); Urine Urobilinogen < 2.0 EU/DL (<2.0)
[2021-08-19] MEDS ORDERED: ENOXAPARIN 80 MG/0.8 ML SYRINGE SUBCUT ONE (14:30)
[2021-08-19] MEDS: SIMVASTATIN 10 MG TABLET PO SCH (23:05)
[2021-08-20 05:13] LABS: Basophils % 0.1 % (0.0-0.8); Hematocrit 34.7 VOL% (42.0-52.0); Hemoglobin 11.1 GM/DL (14.0-18.0); Immature Granulocytes % 2.5 %; Immature Granulocytes Absolute 0.17 #; Lymphocytes # 0.6 10*3/uL (1.4-4.0); Lymphocytes % 8.3 % (21.2-54.2); Mean Corpuscular Volume 92.8 FL (87-102); Mean Platelet Volume 13.5 FL (9.6-12.0); Monocytes % 7.2 % (1.7-12.7); Neutrophils % 81.9 % (38.7-73.9); Platelet Count 178 T/CUMM (130-400); Red Blood Count 3.74 MC/CUMM (3.8-5.5); Red Cell Distribution Width 12.2 % (9.3-17.3); White Blood Count 6.7 T/CUMM (4-12)
[2021-08-20 05:45] LABS: Calcium 7.8 MG/DL (8.5-10.1); Osmolality,Calculated 300.8 MOS/KG (273-304); Potassium 3.3 MMOL/L (3.5-5.1)
[2021-08-20 05:56] LABS: Hypochromia Slight; Lymphocytes 8 % (20-55); Segmented Neutrophils 88 % (50-85); Total Cells Counted 100
[2021-08-20 05:57] LABS: Platelet Estimate Adequate
[2021-08-20] MEDS ORDERED: POTASSIUM CHLORIDE 20 MEQ TABLET PO ONE (07:02)
[2021-08-20] MEDS: ALBUTEROL INHALER 18 GM INH SCH ×4 (07:56→18:44)
[2021-08-20] MEDS ORDERED: FUROSEMIDE 40 MG/4 ML VIAL IV ONE (08:00)
[2021-08-20 08:27] LABS: ABG Base Excess 11.4 MMOL/L (-2.5-2.5); ABG HCO3 34.9 MMOL/L (20-26); ABG Oxygen Saturation 84.7 % (95-100); ABG PH 7.526 (7.35-7.45); ABG PO2 51.3 MM HG (80-95); ABG TCO2 31.7 MMOL/L (23-27)
[2021-08-20] MEDS: AMOXICILLIN/CLAV 875 MG TABLET PO SCH (08:57)
[2021-08-20] MEDS: FENOFIBRATE 145 MG TABLET PO SCH (08:57)
[2021-08-20] MEDS: ASCORBIC ACID 500 MG TABLET PO SCH ×2 (08:57→20:35)
[2021-08-20] MEDS: SERTRALINE 25 MG TABLET PO SCH (08:58)
[2021-08-20] MEDS: ALFUZOSIN 10 MG TABLET PO SCH (08:58)
[2021-08-20] MEDS: FAMOTIDINE 20 MG TABLET PO SCH ×2 (08:58→20:35)
[2021-08-20] MEDS: amLODIPine 5 MG TABLET PO SCH (08:58)
[2021-08-20] MEDS: DEXAMETHASONE 4 MG TABLET PO SCH (08:58)
[2021-08-20] MEDS: SODIUM BICARBONATE 650 MG TABLET PO SCH ×2 (08:59→20:35)
[2021-08-20] MEDS: DOCUSATE SODIUM 100 MG CAPSULE PO SCH ×2 (08:59→20:35)
[2021-08-20] MEDS: CHOLECALCIFEROL 5,000 UNIT TABLET PO SCH (08:59)
[2021-08-20] MEDS: ZINC GLUCONATE 50 MG TABLET PO SCH (08:59)
[2021-08-20] MEDS: APIXABAN 5 MG TABLET PO SCH ×2 (09:18→20:35)
[2021-08-20] MEDS: INSULIN REGULAR 100 UNIT/ML SUBCUT SCH ×4 (09:22→22:30)
[2021-08-20] MEDS: CEFEPIME 1,000 MG in SODIUM CHLORIDE 0.9% 100 ML IV SCH ×2 (09:49→18:43)
[2021-08-20] MEDS: AZITHROMYCIN INJ 500 MG in SODIUM CHLORIDE 0.9% 250 ML IV SCH (10:40)
[2021-08-20] MEDS: DEXAMETHASONE 4 MG/1 ML VIAL IV SCH (20:35)
[2021-08-20] MEDS: SIMVASTATIN 10 MG TABLET PO SCH (20:35)
[2021-08-20] MEDS: hydrALAZINE 20 MG/1 ML VIAL IV PRN (22:45)
[2021-08-21] MEDS: ALBUTEROL INHALER 18 GM INH SCH ×4 (01:30→18:25)
[2021-08-21] MEDS: CEFEPIME 1,000 MG in SODIUM CHLORIDE 0.9% 100 ML IV SCH ×3 (01:45→17:41)
[2021-08-21 05:01] LABS: Basophils % 0.2 % (0.0-0.8); Hematocrit 34.3 VOL% (42.0-52.0); Hemoglobin 11.1 GM/DL (14.0-18.0); Immature Granulocytes % 4.4 %; Immature Granulocytes Absolute 0.24 #; Lymphocytes # 0.5 10*3/uL (1.4-4.0); Mean Corpuscular HGB Conc 32.4 GM/DL (32-36); Mean Corpuscular Volume 91.7 FL (87-102); Mean Platelet Volume 13.1 FL (9.6-12.0); Monocytes % 7.1 % (1.7-12.7); Neutrophils % 79.3 % (38.7-73.9); Platelet Count 188 T/CUMM (130-400); Red Blood Count 3.74 MC/CUMM (3.8-5.5); Red Cell Distribution Width 11.9 % (9.3-17.3); White Blood Count 5.5 T/CUMM (4-12)
[2021-08-21 05:21] LABS: Anisocytosis Slight; Platelet Estimate Normal
[2021-08-21 05:22] LABS: Hypochromia Slight; Macrocytosis Slight
[2021-08-21 05:24] LABS: Calcium 8.4 MG/DL (8.5-10.1); Osmolality,Calculated 305.8 MOS/KG (273-304); Potassium 3.4 MMOL/L (3.5-5.1)
[2021-08-21] MEDS ORDERED: POTASSIUM CHLORIDE 20 MEQ TABLET PO ONE (07:17)
[2021-08-21] MEDS ORDERED: amLODIPine 5 MG TABLET PO ONE (09:10)
[2021-08-21] MEDS: INSULIN REGULAR 100 UNIT/ML SUBCUT SCH ×4 (09:55→20:24)
[2021-08-21] MEDS: DEXAMETHASONE 4 MG/1 ML VIAL IV SCH ×2 (09:56→20:25)
[2021-08-21] MEDS: SODIUM BICARBONATE 650 MG TABLET PO SCH (09:57)
[2021-08-21] MEDS: FENOFIBRATE 145 MG TABLET PO SCH (09:57)
[2021-08-21] MEDS: FAMOTIDINE 20 MG TABLET PO SCH ×2 (09:57→20:23)
[2021-08-21] MEDS: ALFUZOSIN 10 MG TABLET PO SCH (09:57)
[2021-08-21] MEDS: ZINC GLUCONATE 50 MG TABLET PO SCH (09:57)
[2021-08-21] MEDS: CHOLECALCIFEROL 5,000 UNIT TABLET PO SCH (09:57)
[2021-08-21] MEDS: APIXABAN 5 MG TABLET PO SCH ×2 (09:57→20:24)
[2021-08-21] MEDS: ASCORBIC ACID 500 MG TABLET PO SCH ×2 (09:57→20:23)
[2021-08-21] MEDS: DOCUSATE SODIUM 100 MG CAPSULE PO SCH ×2 (09:58→20:23)
[2021-08-21] MEDS: SERTRALINE 25 MG TABLET PO SCH (09:58)
[2021-08-21] MEDS: amLODIPine 5 MG TABLET PO SCH (10:07)
[2021-08-21] MEDS: AZITHROMYCIN INJ 500 MG in SODIUM CHLORIDE 0.9% 250 ML IV SCH (11:49)
[2021-08-21] MEDS ORDERED: LACTATED RINGERS 250 ML IV ONE (13:30)
[2021-08-21] MEDS: SIMVASTATIN 10 MG TABLET PO SCH (20:23)
[2021-08-21] MEDS: hydrALAZINE 20 MG/1 ML VIAL IV PRN (20:25)
[2021-08-21] MEDS ORDERED: INSULIN GLARGINE 100 UNIT/ML SUBCUT SCH (21:00)
[2021-08-22 01:16] LABS: Basophils % 0.1 % (0.0-0.8); Hematocrit 34.7 VOL% (42.0-52.0); Hemoglobin 11.2 GM/DL (14.0-18.0); Immature Granulocytes % 3.5 %; Immature Granulocytes Absolute 0.25 #; Lymphocytes # 0.5 10*3/uL (1.4-4.0); Lymphocytes % 6.8 % (21.2-54.2); Mean Corpuscular HGB Conc 32.3 GM/DL (32-36); Mean Platelet Volume 12.4 FL (9.6-12.0); Neutrophils % 81.6 % (38.7-73.9); Platelet Count 198 T/CUMM (130-400); Red Blood Count 3.73 MC/CUMM (3.8-5.5); White Blood Count 7.1 T/CUMM (4-12)
[2021-08-22] MEDS: CEFEPIME 1,000 MG in SODIUM CHLORIDE 0.9% 100 ML IV SCH ×4 (01:17→22:52)
[2021-08-22] MEDS: ALBUTEROL INHALER 18 GM INH SCH ×2 (01:17→06:35)
[2021-08-22 01:46] LABS: Calcium 8.4 MG/DL (8.5-10.1); Ferritin 965.3 ng/mL (26-388); Osmolality,Calculated 307.4 MOS/KG (273-304); Potassium 3.6 MMOL/L (3.5-5.1)
[2021-08-22] MEDS: hydrALAZINE 20 MG/1 ML VIAL IV PRN (04:26)
[2021-08-22] MEDS: FENOFIBRATE 145 MG TABLET PO SCH (09:12)
[2021-08-22] MEDS: hydrALAZINE 25 MG TABLET PO SCH ×2 (09:14→22:49)
[2021-08-22] MEDS: APIXABAN 5 MG TABLET PO SCH ×2 (09:14→22:49)
[2021-08-22] MEDS: FAMOTIDINE 20 MG TABLET PO SCH ×2 (09:14→22:49)
[2021-08-22] MEDS: amLODIPine 5 MG TABLET PO SCH (09:14)
[2021-08-22] MEDS: DEXAMETHASONE 4 MG/1 ML VIAL IV SCH ×2 (09:14→22:51)
[2021-08-22] MEDS: ZINC GLUCONATE 50 MG TABLET PO SCH (09:14)
[2021-08-22] MEDS: CHOLECALCIFEROL 5,000 UNIT TABLET PO SCH (09:14)
[2021-08-22] MEDS: ALFUZOSIN 10 MG TABLET PO SCH (09:15)
[2021-08-22] MEDS: INSULIN REGULAR 100 UNIT/ML SUBCUT SCH ×3 (09:15→16:00)
[2021-08-22] MEDS: ASCORBIC ACID 500 MG TABLET PO SCH ×2 (09:15→22:49)
[2021-08-22] MEDS: DOCUSATE SODIUM 100 MG CAPSULE PO SCH ×2 (09:15→22:48)
[2021-08-22] MEDS: SERTRALINE 25 MG TABLET PO SCH (09:17)
[2021-08-22] MEDS: AZITHROMYCIN INJ 500 MG in SODIUM CHLORIDE 0.9% 250 ML IV SCH (11:49)
[2021-08-22] MEDS: SIMVASTATIN 10 MG TABLET PO SCH (22:49)
[2021-08-22] MEDS: INSULIN GLARGINE 100 UNIT/ML SUBCUT SCH (22:50)
[2021-08-23] MEDS: INSULIN REGULAR 100 UNIT/ML SUBCUT SCH ×5 (00:15→22:12)
[2021-08-23] MEDS: ALBUTEROL INHALER 18 GM INH SCH ×5 (01:00→22:34)
[2021-08-23] MEDS: CEFEPIME 1,000 MG in SODIUM CHLORIDE 0.9% 100 ML IV SCH ×4 (04:01→22:13)
[2021-08-23] MEDS: hydrALAZINE 20 MG/1 ML VIAL IV PRN (04:19)
[2021-08-23 06:48] LABS: Basophils % 0.3 % (0.0-0.8); Eosinophils % 0.1 % (0.00-10.9); Hematocrit 36.4 VOL% (42.0-52.0); Hemoglobin 11.4 GM/DL (14.0-18.0); Immature Granulocytes % 5.1 %; Immature Granulocytes Absolute 0.46 #; Lymphocytes # 0.6 10*3/uL (1.4-4.0); Lymphocytes % 6.3 % (21.2-54.2); Mean Corpuscular HGB Conc 31.3 GM/DL (32-36); Monocytes % 6.2 % (1.7-12.7); Platelet Count 221 T/CUMM (130-400); Red Blood Count 3.83 MC/CUMM (3.8-5.5); Red Cell Distribution Width 11.9 % (9.3-17.3)
[2021-08-23 07:08] LABS: Calcium 8.4 MG/DL (8.5-10.1); Osmolality,Calculated 319.7 MOS/KG (273-304); Potassium 3.7 MMOL/L (3.5-5.1)
[2021-08-23 07:10] LABS: Band Neutrophils 2 % (0-10); Lymphocytes 4 % (20-55); Myelocytes 1 %; Segmented Neutrophils 90 % (50-85); Total Cells Counted 100
[2021-08-23 07:11] LABS: Hypochromia 1+; Microcytosis 1+; Platelet Estimate Normal
[2021-08-23] MEDS: DEXAMETHASONE 4 MG/1 ML VIAL IV SCH ×2 (09:53→22:14)
[2021-08-23] MEDS: hydrALAZINE 25 MG TABLET PO SCH ×2 (09:53→22:13)
[2021-08-23] MEDS: amLODIPine 5 MG TABLET PO SCH (09:53)
[2021-08-23] MEDS: DOCUSATE SODIUM 100 MG CAPSULE PO SCH ×2 (09:53→22:13)
[2021-08-23] MEDS: ASCORBIC ACID 500 MG TABLET PO SCH ×2 (09:54→22:13)
[2021-08-23] MEDS: FENOFIBRATE 145 MG TABLET PO SCH (09:54)
[2021-08-23] MEDS: CHOLECALCIFEROL 5,000 UNIT TABLET PO SCH (09:54)
[2021-08-23] MEDS: ZINC GLUCONATE 50 MG TABLET PO SCH (09:54)
[2021-08-23] MEDS: ALFUZOSIN 10 MG TABLET PO SCH (09:54)
[2021-08-23] MEDS: SERTRALINE 25 MG TABLET PO SCH (09:54)
[2021-08-23] MEDS: FAMOTIDINE 20 MG TABLET PO SCH ×2 (09:54→22:13)
[2021-08-23] MEDS: APIXABAN 5 MG TABLET PO SCH ×2 (09:55→22:13)
[2021-08-23] MEDS: AZITHROMYCIN INJ 500 MG in SODIUM CHLORIDE 0.9% 250 ML IV SCH (12:33)
[2021-08-23] MEDS: LOSARTAN 25 MG TABLET PO SCH (14:55)
[2021-08-23] MEDS: INSULIN GLARGINE 100 UNIT/ML SUBCUT SCH (22:12)
[2021-08-23] MEDS: SIMVASTATIN 10 MG TABLET PO SCH (22:13)
[2021-08-24] MEDS: hydrALAZINE 20 MG/1 ML VIAL IV PRN (00:37)
[2021-08-24] MEDS: ALBUTEROL INHALER 18 GM INH SCH ×5 (02:13→22:06)
[2021-08-24] MEDS: CEFEPIME 1,000 MG in SODIUM CHLORIDE 0.9% 100 ML IV SCH ×4 (02:13→22:07)
[2021-08-24] MEDS ORDERED: LABETALOL 20 MG/4 ML SYRINGE IV ONE (02:19)
[2021-08-24 05:34] LABS: Basophils % 0.3 % (0.0-0.8); Eosinophils # 0.1 10*3/uL (0.0-0.87); Eosinophils % 0.5 % (0.00-10.9); Hematocrit 33.6 VOL% (42.0-52.0); Hemoglobin 10.7 GM/DL (14.0-18.0); Immature Granulocytes % 4.8 %; Immature Granulocytes Absolute 0.58 #; Lymphocytes # 0.7 10*3/uL (1.4-4.0); Lymphocytes % 5.4 % (21.2-54.2); Mean Corpuscular HGB Conc 31.8 GM/DL (32-36); Mean Corpuscular Volume 94.4 FL (87-102); Mean Platelet Volume 12.9 FL (9.6-12.0); Monocytes % 4.8 % (1.7-12.7); Neutrophils % 84.2 % (38.7-73.9); Platelet Count 214 T/CUMM (130-400); Red Blood Count 3.56 MC/CUMM (3.8-5.5); Red Cell Distribution Width 11.9 % (9.3-17.3)
[2021-08-24 05:59] LABS: Calcium 8.6 MG/DL (8.5-10.1); Ferritin 683.7 ng/mL (26-388); Osmolality,Calculated 313.9 MOS/KG (273-304); Potassium 3.6 MMOL/L (3.5-5.1)
[2021-08-24 06:10] LABS: Eosinophils 1 % (0-10); Hypochromia 1+; Lymphocytes 4 % (20-55); Microcytosis 1+; Platelet Estimate Adequate; Segmented Neutrophils 91 % (50-85); Total Cells Counted 100
[2021-08-24] MEDS: LOSARTAN 25 MG TABLET PO SCH (09:51)
[2021-08-24] MEDS: CHOLECALCIFEROL 5,000 UNIT TABLET PO SCH (09:51)
[2021-08-24] MEDS: FENOFIBRATE 145 MG TABLET PO SCH (09:51)
[2021-08-24] MEDS: amLODIPine 5 MG TABLET PO SCH (09:51)
[2021-08-24] MEDS: SERTRALINE 25 MG TABLET PO SCH (09:51)
[2021-08-24] MEDS: APIXABAN 5 MG TABLET PO SCH ×2 (09:51→22:05)
[2021-08-24] MEDS: ZINC GLUCONATE 50 MG TABLET PO SCH (09:51)
[2021-08-24] MEDS: hydrALAZINE 25 MG TABLET PO SCH ×2 (09:51→22:06)
[2021-08-24] MEDS: FAMOTIDINE 20 MG TABLET PO SCH ×2 (09:52→22:06)
[2021-08-24] MEDS: ASCORBIC ACID 500 MG TABLET PO SCH ×2 (09:52→22:06)
[2021-08-24] MEDS: INSULIN REGULAR 100 UNIT/ML SUBCUT SCH ×4 (09:52→22:05)
[2021-08-24] MEDS: ALFUZOSIN 10 MG TABLET PO SCH (09:52)
[2021-08-24] MEDS: DEXAMETHASONE 4 MG/1 ML VIAL IV SCH ×2 (09:52→22:06)
[2021-08-24] MEDS: DOCUSATE SODIUM 100 MG CAPSULE PO SCH ×2 (09:52→22:06)
[2021-08-24] MEDS: AZITHROMYCIN INJ 500 MG in SODIUM CHLORIDE 0.9% 250 ML IV SCH (12:06)
[2021-08-24] MEDS: INSULIN GLARGINE 100 UNIT/ML SUBCUT SCH (22:05)
[2021-08-24] MEDS: SIMVASTATIN 10 MG TABLET PO SCH (22:06)
[2021-08-25] MEDS: hydrALAZINE 20 MG/1 ML VIAL IV PRN ×2 (01:47→12:34)
[2021-08-25] MEDS: ALBUTEROL INHALER 18 GM INH SCH ×4 (02:40→21:34)
[2021-08-25] MEDS: CEFEPIME 1,000 MG in SODIUM CHLORIDE 0.9% 100 ML IV SCH ×4 (03:21→21:38)
[2021-08-25 04:41] LABS: Basophils % 0.2 % (0.0-0.8); Eosinophils % 0.2 % (0.00-10.9); Hematocrit 32.7 VOL% (42.0-52.0); Hemoglobin 10.4 GM/DL (14.0-18.0); Immature Granulocytes % 3.4 %; Immature Granulocytes Absolute 0.42 #; Lymphocytes # 0.5 10*3/uL (1.4-4.0); Mean Corpuscular HGB Conc 31.8 GM/DL (32-36); Mean Corpuscular Volume 94.8 FL (87-102); Monocytes % 3.6 % (1.7-12.7); Neutrophils % 88.6 % (38.7-73.9); Platelet Count 192 T/CUMM (130-400); Red Blood Count 3.45 MC/CUMM (3.8-5.5); White Blood Count 12.3 T/CUMM (4-12)
[2021-08-25 05:04] LABS: Calcium 8.8 MG/DL (8.5-10.1); Ferritin 806.2 ng/mL (26-388); Osmolality,Calculated 321.4 MOS/KG (273-304); Potassium 3.7 MMOL/L (3.5-5.1)
[2021-08-25 05:06] LABS: Hypochromia Slight; Lymphocytes 6 % (20-55); Microcytosis Slight; Platelet Estimate Adequate; Segmented Neutrophils 89 % (50-85); Total Cells Counted 100
[2021-08-25] MEDS ORDERED: hydrALAZINE 25 MG TABLET PO SCH (09:00)
[2021-08-25] MEDS: DEXAMETHASONE 4 MG/1 ML VIAL IV SCH ×2 (09:42→21:36)
[2021-08-25] MEDS: INSULIN REGULAR 100 UNIT/ML SUBCUT SCH ×4 (09:43→22:39)
[2021-08-25] MEDS: FAMOTIDINE 20 MG TABLET PO SCH ×2 (09:43→21:33)
[2021-08-25] MEDS: amLODIPine 5 MG TABLET PO SCH (09:44)
[2021-08-25] MEDS: FENOFIBRATE 145 MG TABLET PO SCH (09:44)
[2021-08-25] MEDS: ASCORBIC ACID 500 MG TABLET PO SCH ×2 (09:44→21:34)
[2021-08-25] MEDS: NYSTATIN 500,000 UNIT/5 ML UDCUP SWISH/SWAL SCH ×2 (09:44→21:34)
[2021-08-25] MEDS: DOCUSATE SODIUM 100 MG CAPSULE PO SCH ×2 (09:44→21:34)
[2021-08-25] MEDS: APIXABAN 5 MG TABLET PO SCH ×2 (09:44→21:34)
[2021-08-25] MEDS: LOSARTAN 25 MG TABLET PO SCH (09:44)
[2021-08-25] MEDS: ALFUZOSIN 10 MG TABLET PO SCH (09:44)
[2021-08-25] MEDS: ZINC GLUCONATE 50 MG TABLET PO SCH (09:44)
[2021-08-25] MEDS: INSULIN GLARGINE 100 UNIT/ML SUBCUT SCH ×3 (12:34→22:39)
[2021-08-25] MEDS: CHOLECALCIFEROL 5,000 UNIT TABLET PO SCH (12:34)
[2021-08-25] MEDS: SERTRALINE 25 MG TABLET PO SCH (12:34)
[2021-08-25] MEDS: AZITHROMYCIN INJ 500 MG in SODIUM CHLORIDE 0.9% 250 ML IV SCH (12:37)
[2021-08-25] MEDS: DEXTROSE 5% 1,000 ML IV SCH (12:39)
[2021-08-25] MEDS: SIMVASTATIN 10 MG TABLET PO SCH (21:34)
[2021-08-26] MEDS: CEFEPIME 1,000 MG in SODIUM CHLORIDE 0.9% 100 ML IV SCH ×5 (00:03→22:37)
[2021-08-26] MEDS: DEXAMETHASONE 4 MG/1 ML VIAL IV SCH ×3 (00:15→22:37)
[2021-08-26] MEDS: ALBUTEROL INHALER 18 GM INH SCH ×4 (02:10→22:37)
[2021-08-26] MEDS: hydrALAZINE 20 MG/1 ML VIAL IV PRN ×2 (04:20→12:29)
[2021-08-26 06:35] LABS: Basophils % 0.2 % (0.0-0.8); Eosinophils # 0.1 10*3/uL (0.0-0.87); Eosinophils % 0.8 % (0.00-10.9); Hematocrit 35.3 VOL% (42.0-52.0); Hemoglobin 10.9 GM/DL (14.0-18.0); Immature Granulocytes % 2.5 %; Immature Granulocytes Absolute 0.37 #; Lymphocytes # 1.2 10*3/uL (1.4-4.0); Lymphocytes % 8.3 % (21.2-54.2); Mean Corpuscular HGB Conc 30.9 GM/DL (32-36); Mean Corpuscular Volume 95.7 FL (87-102); Monocytes % 3.9 % (1.7-12.7); Neutrophils % 84.3 % (38.7-73.9); Platelet Count 241 T/CUMM (130-400); Red Blood Count 3.69 MC/CUMM (3.8-5.5); Red Cell Distribution Width 12.4 % (9.3-17.3); White Blood Count 14.5 T/CUMM (4-12)
[2021-08-26 07:10] LABS: Calcium 8.6 MG/DL (8.5-10.1); Osmolality,Calculated 324.6 MOS/KG (273-304); Potassium 3.6 MMOL/L (3.5-5.1)
[2021-08-26] MEDS: AZITHROMYCIN INJ 500 MG in SODIUM CHLORIDE 0.9% 250 ML IV SCH (10:15)
[2021-08-26] MEDS: INSULIN REGULAR 100 UNIT/ML SUBCUT SCH ×4 (11:36→23:01)
[2021-08-26] MEDS: DOCUSATE SODIUM 100 MG CAPSULE PO SCH ×2 (15:23→23:01)
[2021-08-26] MEDS: LOSARTAN 50 MG TABLET PO SCH (15:23)
[2021-08-26] MEDS: NYSTATIN 500,000 UNIT/5 ML UDCUP SWISH/SWAL SCH ×2 (15:24→23:02)
[2021-08-26] MEDS: APIXABAN 5 MG TABLET PO SCH ×2 (15:24→22:37)
[2021-08-26] MEDS: FENOFIBRATE 145 MG TABLET PO SCH (15:27)
[2021-08-26] MEDS: ASCORBIC ACID 500 MG TABLET PO SCH ×2 (15:27→23:02)
[2021-08-26] MEDS: amLODIPine 5 MG TABLET PO SCH (15:27)
[2021-08-26] MEDS: FAMOTIDINE 20 MG TABLET PO SCH ×2 (15:27→23:02)
[2021-08-26] MEDS: ALFUZOSIN 10 MG TABLET PO SCH (15:27)
[2021-08-26] MEDS: ZINC GLUCONATE 50 MG TABLET PO SCH (15:28)
[2021-08-26] MEDS: SERTRALINE 25 MG TABLET PO SCH (15:28)
[2021-08-26] MEDS: CHOLECALCIFEROL 5,000 UNIT TABLET PO SCH (15:28)
[2021-08-26] MEDS: DEXTROSE 5% 1,000 ML IV SCH ×2 (22:59→23:00)
[2021-08-26] MEDS: INSULIN GLARGINE 100 UNIT/ML SUBCUT SCH (23:01)
[2021-08-26] MEDS: SIMVASTATIN 10 MG TABLET PO SCH (23:02)
[2021-08-27] MEDS: ALBUTEROL INHALER 18 GM INH SCH ×2 (03:17→23:50)
[2021-08-27] MEDS: CEFEPIME 1,000 MG in SODIUM CHLORIDE 0.9% 100 ML IV SCH ×4 (03:23→21:46)
[2021-08-27 05:43] LABS: Basophils % 0.2 % (0.0-0.8); Eosinophils % 0.2 % (0.00-10.9); Hematocrit 30.9 VOL% (42.0-52.0); Hemoglobin 9.5 GM/DL (14.0-18.0); Immature Granulocytes Absolute 0.25 #; Lymphocytes # 0.6 10*3/uL (1.4-4.0); Lymphocytes % 4.8 % (21.2-54.2); Mean Corpuscular HGB Conc 30.7 GM/DL (32-36); Mean Corpuscular Volume 95.1 FL (87-102); Mean Platelet Volume 12.6 FL (9.6-12.0); Monocytes % 3.3 % (1.7-12.7); Neutrophils % 89.5 % (38.7-73.9); Platelet Count 214 T/CUMM (130-400); Red Blood Count 3.25 MC/CUMM (3.8-5.5); Red Cell Distribution Width 12.3 % (9.3-17.3); White Blood Count 12.5 T/CUMM (4-12)
[2021-08-27 05:53] LABS: Calcium 8.3 MG/DL (8.5-10.1); Osmolality,Calculated 318.3 MOS/KG (273-304); Potassium 3.6 MMOL/L (3.5-5.1)
[2021-08-27 06:14] LABS: Lymphocytes 3 % (20-55); Platelet Estimate Adequate; Segmented Neutrophils 95 % (50-85); Total Cells Counted 100
[2021-08-27] MEDS: NYSTATIN 500,000 UNIT/5 ML UDCUP SWISH/SWAL SCH ×2 (09:19→21:13)
[2021-08-27] MEDS: INSULIN REGULAR 100 UNIT/ML SUBCUT SCH ×4 (09:19→21:45)
[2021-08-27] MEDS: DEXAMETHASONE 4 MG/1 ML VIAL IV SCH ×2 (09:19→21:46)
[2021-08-27] MEDS: FENOFIBRATE 145 MG TABLET PO SCH (09:20)
[2021-08-27] MEDS: ALFUZOSIN 10 MG TABLET PO SCH (09:20)
[2021-08-27] MEDS: ASCORBIC ACID 500 MG TABLET PO SCH ×2 (09:20→21:14)
[2021-08-27] MEDS: APIXABAN 5 MG TABLET PO SCH ×2 (09:20→21:13)
[2021-08-27] MEDS: amLODIPine 5 MG TABLET PO SCH (09:20)
[2021-08-27] MEDS: DOCUSATE SODIUM 100 MG CAPSULE PO SCH ×2 (09:20→21:13)
[2021-08-27] MEDS: SERTRALINE 25 MG TABLET PO SCH (09:20)
[2021-08-27] MEDS: CHOLECALCIFEROL 5,000 UNIT TABLET PO SCH (09:21)
[2021-08-27] MEDS: FAMOTIDINE 20 MG TABLET PO SCH ×2 (09:21→21:14)
[2021-08-27] MEDS: LOSARTAN 50 MG TABLET PO SCH (09:21)
[2021-08-27] MEDS: ZINC GLUCONATE 50 MG TABLET PO SCH (09:21)
[2021-08-27] MEDS: AZITHROMYCIN INJ 500 MG in SODIUM CHLORIDE 0.9% 250 ML IV SCH (12:08)
[2021-08-27] MEDS: SIMVASTATIN 10 MG TABLET PO SCH (21:14)
[2021-08-27] MEDS: INSULIN GLARGINE 100 UNIT/ML SUBCUT SCH (21:45)
[2021-08-27] MEDS: DEXTROSE 5% 1,000 ML IV SCH (23:05)
[2021-08-28] MEDS: ALBUTEROL INHALER 18 GM INH SCH ×2 (01:11→21:59)
[2021-08-28] MEDS: CEFEPIME 1,000 MG in SODIUM CHLORIDE 0.9% 100 ML IV SCH ×4 (03:53→21:59)
[2021-08-28 05:31] LABS: Basophils % 0.1 % (0.0-0.8); Eosinophils % 0.1 % (0.00-10.9); Hematocrit 29.2 VOL% (42.0-52.0); Immature Granulocytes % 1.3 %; Immature Granulocytes Absolute 0.14 #; Lymphocytes # 0.6 10*3/uL (1.4-4.0); Lymphocytes % 5.1 % (21.2-54.2); Mean Corpuscular HGB Conc 30.8 GM/DL (32-36); Mean Corpuscular Volume 94.8 FL (87-102); Mean Platelet Volume 12.9 FL (9.6-12.0); Monocytes % 3.6 % (1.7-12.7); Neutrophils % 89.8 % (38.7-73.9); Platelet Count 174 T/CUMM (130-400); Red Blood Count 3.08 MC/CUMM (3.8-5.5); White Blood Count 10.8 T/CUMM (4-12)
[2021-08-28 06:01] LABS: Calcium 7.9 MG/DL (8.5-10.1); Potassium 4.1 MMOL/L (3.5-5.1)
[2021-08-28 08:59] LABS: ABG Base Excess 1.3 MMOL/L (-2.5-2.5); ABG HCO3 24.6 MMOL/L (20-26); ABG Oxygen Saturation 93.6 % (95-100); ABG PCO2 33.6 MM HG (35-48); ABG PH 7.483 (7.35-7.45); ABG PO2 67.7 MM HG (80-95); ABG TCO2 25.7 MMOL/L (23-27)
[2021-08-28] MEDS: INSULIN REGULAR 100 UNIT/ML SUBCUT SCH ×4 (09:23→22:02)
[2021-08-28] MEDS: amLODIPine 5 MG TABLET PO SCH (09:24)
[2021-08-28] MEDS: ZINC GLUCONATE 50 MG TABLET PO SCH (09:24)
[2021-08-28] MEDS: ALFUZOSIN 10 MG TABLET PO SCH (09:24)
[2021-08-28] MEDS: ASCORBIC ACID 500 MG TABLET PO SCH ×2 (09:24→22:00)
[2021-08-28] MEDS: DEXAMETHASONE 4 MG/1 ML VIAL IV SCH ×2 (09:24→22:00)
[2021-08-28] MEDS: LOSARTAN 50 MG TABLET PO SCH (09:25)
[2021-08-28] MEDS: SERTRALINE 25 MG TABLET PO SCH (09:25)
[2021-08-28] MEDS: FENOFIBRATE 145 MG TABLET PO SCH (09:25)
[2021-08-28] MEDS: FAMOTIDINE 20 MG TABLET PO SCH ×2 (09:25→22:02)
[2021-08-28] MEDS: APIXABAN 5 MG TABLET PO SCH ×2 (09:25→22:01)
[2021-08-28] MEDS: CHOLECALCIFEROL 5,000 UNIT TABLET PO SCH (09:25)
[2021-08-28] MEDS: DOCUSATE SODIUM 100 MG CAPSULE PO SCH ×2 (09:36→22:01)
[2021-08-28] MEDS: DEXTROSE 5% 1,000 ML IV SCH ×2 (09:36→21:59)
[2021-08-28] MEDS: NYSTATIN 500,000 UNIT/5 ML UDCUP SWISH/SWAL SCH ×2 (09:37→22:00)
[2021-08-28] MEDS: SIMVASTATIN 10 MG TABLET PO SCH (22:02)
[2021-08-28] MEDS: INSULIN GLARGINE 100 UNIT/ML SUBCUT SCH (22:05)
[2021-08-29] MEDS: ALBUTEROL INHALER 18 GM INH SCH (02:28)
[2021-08-29] MEDS: CEFEPIME 1,000 MG in SODIUM CHLORIDE 0.9% 100 ML IV SCH ×4 (02:28→21:44)
[2021-08-29 05:37] LABS: Basophils % 0.1 % (0.0-0.8); Eosinophils # 0.1 10*3/uL (0.0-0.87); Eosinophils % 0.7 % (0.00-10.9); Hematocrit 26.9 VOL% (42.0-52.0); Hemoglobin 8.6 GM/DL (14.0-18.0); Immature Granulocytes Absolute 0.12 #; Lymphocytes # 0.7 10*3/uL (1.4-4.0); Lymphocytes % 6.4 % (21.2-54.2); Mean Corpuscular Volume 93.7 FL (87-102); Mean Platelet Volume 12.3 FL (9.6-12.0); Monocytes % 4.2 % (1.7-12.7); Neutrophils % 87.6 % (38.7-73.9); Platelet Count 156 T/CUMM (130-400); Red Blood Count 2.87 MC/CUMM (3.8-5.5); Red Cell Distribution Width 11.7 % (9.3-17.3); White Blood Count 11.6 T/CUMM (4-12)
[2021-08-29 06:05] LABS: Calcium 7.6 MG/DL (8.5-10.1); Osmolality,Calculated 297.7 MOS/KG (273-304); Potassium 4.1 MMOL/L (3.5-5.1)
[2021-08-29 07:25] LABS: Band Neutrophils 4 % (0-10); Hypochromia Slight; Lymphocytes 4 % (20-55); Microcytosis 1+; Ovalocytes Slight; Platelet Estimate Adequate; Segmented Neutrophils 91 % (50-85); Total Cells Counted 100
[2021-08-29] MEDS: INSULIN REGULAR 100 UNIT/ML SUBCUT SCH ×4 (09:35→21:43)
[2021-08-29] MEDS: NYSTATIN 500,000 UNIT/5 ML UDCUP SWISH/SWAL SCH ×2 (09:36→21:41)
[2021-08-29] MEDS: ALFUZOSIN 10 MG TABLET PO SCH (09:36)
[2021-08-29] MEDS: ASCORBIC ACID 500 MG TABLET PO SCH ×2 (09:36→21:42)
[2021-08-29] MEDS: DEXAMETHASONE 4 MG/1 ML VIAL IV SCH ×2 (09:36→21:44)
[2021-08-29] MEDS: LOSARTAN 50 MG TABLET PO SCH (09:36)
[2021-08-29] MEDS: FAMOTIDINE 20 MG TABLET PO SCH ×2 (09:37→21:42)
[2021-08-29] MEDS: amLODIPine 5 MG TABLET PO SCH (09:37)
[2021-08-29] MEDS: APIXABAN 5 MG TABLET PO SCH ×2 (09:37→21:42)
[2021-08-29] MEDS: ZINC GLUCONATE 50 MG TABLET PO SCH (09:37)
[2021-08-29] MEDS: SERTRALINE 25 MG TABLET PO SCH (09:37)
[2021-08-29] MEDS: FENOFIBRATE 145 MG TABLET PO SCH (09:37)
[2021-08-29] MEDS: DOCUSATE SODIUM 100 MG CAPSULE PO SCH ×2 (09:37→21:42)
[2021-08-29] MEDS: CHOLECALCIFEROL 5,000 UNIT TABLET PO SCH (09:37)
[2021-08-29] MEDS: DEXTROSE 5% 1,000 ML IV SCH (11:54)
[2021-08-29] MEDS: SIMVASTATIN 10 MG TABLET PO SCH (21:42)
[2021-08-29] MEDS: INSULIN GLARGINE 100 UNIT/ML SUBCUT SCH (21:43)
[2021-08-30 06:16] LABS: Potassium 3.8 MMOL/L (3.5-5.1)
[2021-08-30] MEDS: INSULIN REGULAR 100 UNIT/ML SUBCUT SCH ×4 (07:53→21:42)
[2021-08-30] MEDS: DEXTROSE 5% 1,000 ML IV SCH ×3 (07:53→14:21)
[2021-08-30] MEDS: DEXAMETHASONE 4 MG/1 ML VIAL IV SCH ×2 (08:48→21:42)
[2021-08-30] MEDS: ALFUZOSIN 10 MG TABLET PO SCH (08:48)
[2021-08-30] MEDS: LOSARTAN 50 MG TABLET PO SCH (08:49)
[2021-08-30] MEDS: CHOLECALCIFEROL 5,000 UNIT TABLET PO SCH (08:49)
[2021-08-30] MEDS: ASCORBIC ACID 500 MG TABLET PO SCH ×2 (08:49→21:41)
[2021-08-30] MEDS: SERTRALINE 25 MG TABLET PO SCH (08:49)
[2021-08-30] MEDS: FENOFIBRATE 145 MG TABLET PO SCH (08:49)
[2021-08-30] MEDS: ZINC GLUCONATE 50 MG TABLET PO SCH (08:49)
[2021-08-30] MEDS: DOCUSATE SODIUM 100 MG CAPSULE PO SCH ×2 (08:49→21:41)
[2021-08-30] MEDS: APIXABAN 5 MG TABLET PO SCH ×2 (08:49→21:40)
[2021-08-30] MEDS: amLODIPine 5 MG TABLET PO SCH (08:49)
[2021-08-30] MEDS: FAMOTIDINE 20 MG TABLET PO SCH ×2 (08:49→21:40)
[2021-08-30] MEDS: NYSTATIN 500,000 UNIT/5 ML UDCUP SWISH/SWAL SCH ×2 (08:56→21:41)
[2021-08-30 09:44] LABS: Basophils % 0.4 % (0.2-1.0); Eosinophils # 0.1 # (0.0-0.70); Eosinophils % 0.4 % (0.0-10.0); Hematocrit 24.9 VOL% (42.0-52.0); Hemoglobin 8.4 GM/DL (14.0-18.0); Lymphocytes # 0.6 # (1.3-2.9); Mean Corpuscular HGB Conc 33.7 GM/DL (32-36); Mean Corpuscular Volume 90.5 FL (80-94); Mean Platelet Volume 13.5 FL (7.4-10.4); Monocytes % 4.8 % (5.5-11.7); Neutrophils % 88.3 % (43.0-65.0); Platelet Count 150 T/CUMM (130-400); Red Blood Count 2.75 MC/CUMM (4.70-6.10); Red Cell Distribution Width 11.6 % (11.5-15.5); White Blood Count 11.4 T/CUMM (4.8-10.8)
[2021-08-30] MEDS: SIMVASTATIN 10 MG TABLET PO SCH (21:40)
[2021-08-30] MEDS: INSULIN GLARGINE 100 UNIT/ML SUBCUT SCH (21:43)
[2021-08-31] MEDS: INSULIN REGULAR 100 UNIT/ML SUBCUT SCH ×4 (09:06→22:00)
[2021-08-31] MEDS: DEXAMETHASONE 4 MG/1 ML VIAL IV SCH ×2 (09:07→21:11)
[2021-08-31] MEDS: NYSTATIN 500,000 UNIT/5 ML UDCUP SWISH/SWAL SCH ×2 (09:07→21:09)
[2021-08-31] MEDS: amLODIPine 5 MG TABLET PO SCH (09:08)
[2021-08-31] MEDS: APIXABAN 5 MG TABLET PO SCH ×2 (09:08→21:10)
[2021-08-31] MEDS: ASCORBIC ACID 500 MG TABLET PO SCH ×2 (09:08→21:10)
[2021-08-31] MEDS: FENOFIBRATE 145 MG TABLET PO SCH (09:08)
[2021-08-31] MEDS: FAMOTIDINE 20 MG TABLET PO SCH ×2 (09:08→21:10)
[2021-08-31] MEDS: ZINC GLUCONATE 50 MG TABLET PO SCH (09:08)
[2021-08-31] MEDS: CHOLECALCIFEROL 5,000 UNIT TABLET PO SCH (09:08)
[2021-08-31] MEDS: ALFUZOSIN 10 MG TABLET PO SCH (09:08)
[2021-08-31] MEDS: DOCUSATE SODIUM 100 MG CAPSULE PO SCH ×2 (09:08→21:10)
[2021-08-31] MEDS: ALBUTEROL INHALER 18 GM INH SCH ×4 (09:09→21:09)
[2021-08-31] MEDS: LOSARTAN 50 MG TABLET PO SCH (09:09)
[2021-08-31] MEDS: SERTRALINE 25 MG TABLET PO SCH (09:09)
[2021-08-31] MEDS: DEXTROSE 5% 1,000 ML IV SCH ×4 (09:19→21:11)
[2021-08-31] MEDS: FUROSEMIDE 20 MG TABLET PO SCH (13:30)
[2021-08-31] MEDS: INSULIN GLARGINE 100 UNIT/ML SUBCUT SCH (21:09)
[2021-08-31] MEDS: SIMVASTATIN 10 MG TABLET PO SCH (21:10)
[2021-08-31] MEDS: ACETAMINOPHEN 325 MG TABLET PO PRN (23:57)
[2021-09-01] MEDS: ALBUTEROL INHALER 18 GM INH SCH ×4 (01:00→22:25)
[2021-09-01 05:57] LABS: Basophils % 0.1 % (0.0-0.8); Eosinophils % 0.1 % (0.00-10.9); Hemoglobin 8.5 GM/DL (14.0-18.0); Immature Granulocytes % 1.6 %; Immature Granulocytes Absolute 0.18 #; Lymphocytes # 0.6 10*3/uL (1.4-4.0); Lymphocytes % 4.8 % (21.2-54.2); Mean Platelet Volume 12.9 FL (9.6-12.0); Monocytes % 4.2 % (1.7-12.7); Neutrophils % 89.2 % (38.7-73.9); Platelet Count 164 T/CUMM (130-400); Red Blood Count 2.81 MC/CUMM (3.8-5.5); Red Cell Distribution Width 11.5 % (9.3-17.3); White Blood Count 11.6 T/CUMM (4-12)
[2021-09-01 06:03] LABS: Calcium 8.3 MG/DL (8.5-10.1); Osmolality,Calculated 286.4 MOS/KG (273-304)
[2021-09-01 06:08] LABS: Albumin 1.4 G/DL (3.4-5.0); Osmolality,Calculated 288.3 MOS/KG (273-304); Potassium 4.1 MMOL/L (3.5-5.1); Total Protein 5.7 G/DL (6.4-8.2)
[2021-09-01 06:22] LABS: Lymphocytes 11 % (20-55); Microcytosis 1+; Ovalocytes Slight; Segmented Neutrophils 84 % (50-85); Total Cells Counted 100
[2021-09-01 06:23] LABS: Platelet Estimate Adequate
[2021-09-01] MEDS: DEXAMETHASONE 4 MG/1 ML VIAL IV SCH ×2 (08:23→22:24)
[2021-09-01] MEDS: ZINC GLUCONATE 50 MG TABLET PO SCH (08:23)
[2021-09-01] MEDS: INSULIN REGULAR 100 UNIT/ML SUBCUT SCH ×4 (08:24→22:22)
[2021-09-01] MEDS: SERTRALINE 25 MG TABLET PO SCH (08:24)
[2021-09-01] MEDS: ALFUZOSIN 10 MG TABLET PO SCH (08:24)
[2021-09-01] MEDS: CHOLECALCIFEROL 5,000 UNIT TABLET PO SCH (08:24)
[2021-09-01] MEDS: amLODIPine 5 MG TABLET PO SCH (08:24)
[2021-09-01] MEDS: LOSARTAN 50 MG TABLET PO SCH (08:25)
[2021-09-01] MEDS: FUROSEMIDE 20 MG TABLET PO SCH (08:25)
[2021-09-01] MEDS: ASCORBIC ACID 500 MG TABLET PO SCH ×2 (08:25→22:24)
[2021-09-01] MEDS: DOCUSATE SODIUM 100 MG CAPSULE PO SCH ×2 (08:26→22:24)
[2021-09-01] MEDS: FAMOTIDINE 20 MG TABLET PO SCH ×2 (08:26→22:24)
[2021-09-01] MEDS: FENOFIBRATE 145 MG TABLET PO SCH (08:26)
[2021-09-01] MEDS: NYSTATIN 500,000 UNIT/5 ML UDCUP SWISH/SWAL SCH ×2 (08:26→22:23)
[2021-09-01] MEDS: APIXABAN 5 MG TABLET PO SCH ×2 (08:27→22:23)
[2021-09-01] MEDS ORDERED: FUROSEMIDE 40 MG/4 ML VIAL IV ONE (09:30)
[2021-09-01] MEDS ORDERED: KETOROLAC 30 MG/1 ML VIAL IV ONE (09:35)
[2021-09-01] MEDS: INSULIN GLARGINE 100 UNIT/ML SUBCUT SCH (22:23)
[2021-09-01] MEDS: SIMVASTATIN 10 MG TABLET PO SCH (22:23)
[2021-09-02 07:24] LABS: Basophils % 0.1 % (0.0-0.8); Eosinophils % 0.2 % (0.00-10.9); Hematocrit 27.7 VOL% (42.0-52.0); Hemoglobin 9.3 GM/DL (14.0-18.0); Immature Granulocytes % 1.8 %; Immature Granulocytes Absolute 0.27 #; Lymphocytes # 0.8 10*3/uL (1.4-4.0); Lymphocytes % 4.9 % (21.2-54.2); Mean Corpuscular HGB Conc 33.6 GM/DL (32-36); Mean Corpuscular Volume 89.4 FL (87-102); Mean Platelet Volume 13.2 FL (9.6-12.0); Monocytes % 5.6 % (1.7-12.7); Neutrophils % 87.4 % (38.7-73.9); Platelet Count 195 T/CUMM (130-400); Red Cell Distribution Width 11.9 % (9.3-17.3); White Blood Count 15.4 T/CUMM (4-12)
[2021-09-02 07:31] LABS: Albumin 1.7 G/DL (3.4-5.0); Bilirubin,Total 0.4 MG/DL (0.20-1.00); Calcium 8.7 MG/DL (8.5-10.1); Osmolality,Calculated 280.4 MOS/KG (273-304); Total Protein 6.2 G/DL (6.4-8.2)
[2021-09-02 07:45] LABS: Hypochromia 1+; Lymphocytes 4 % (20-55); Microcytosis 1+; Platelet Estimate Adequate; Segmented Neutrophils 93 % (50-85); Total Cells Counted 100
[2021-09-02] MEDS: ALBUTEROL INHALER 18 GM INH SCH ×3 (08:00→18:14)
[2021-09-02] MEDS ORDERED: INSULIN GLARGINE 100 UNIT/ML SUBCUT SCH (09:00)
[2021-09-02] MEDS: SERTRALINE 25 MG TABLET PO SCH (09:13)
[2021-09-02] MEDS: ZINC GLUCONATE 50 MG TABLET PO SCH (09:13)
[2021-09-02] MEDS: FUROSEMIDE 20 MG TABLET PO SCH (09:13)
[2021-09-02] MEDS: INSULIN REGULAR 100 UNIT/ML SUBCUT SCH ×4 (09:13→21:48)
[2021-09-02] MEDS: FAMOTIDINE 20 MG TABLET PO SCH ×2 (09:14→21:47)
[2021-09-02] MEDS: CHOLECALCIFEROL 5,000 UNIT TABLET PO SCH (09:14)
[2021-09-02] MEDS: ASCORBIC ACID 500 MG TABLET PO SCH ×2 (09:14→21:39)
[2021-09-02] MEDS: ALFUZOSIN 10 MG TABLET PO SCH (09:14)
[2021-09-02] MEDS: amLODIPine 5 MG TABLET PO SCH (09:14)
[2021-09-02] MEDS: APIXABAN 5 MG TABLET PO SCH ×2 (09:15→21:39)
[2021-09-02] MEDS: FENOFIBRATE 145 MG TABLET PO SCH (09:15)
[2021-09-02] MEDS: DOCUSATE SODIUM 100 MG CAPSULE PO SCH ×2 (09:15→21:38)
[2021-09-02] MEDS: ACETAMINOPHEN 325 MG TABLET PO PRN ×2 (09:16→23:03)
[2021-09-02] MEDS: DEXAMETHASONE 4 MG/1 ML VIAL IV SCH ×2 (09:16→21:47)
[2021-09-02] MEDS: NYSTATIN 500,000 UNIT/5 ML UDCUP SWISH/SWAL SCH ×2 (09:17→21:36)
[2021-09-02] MEDS: LOSARTAN 50 MG TABLET PO SCH (10:53)
[2021-09-02] MEDS: SIMVASTATIN 10 MG TABLET PO SCH (21:38)
[2021-09-02] MEDS: INSULIN GLARGINE 100 UNIT/ML SUBCUT SCH (21:40)
[2021-09-03] MEDS: ALBUTEROL INHALER 18 GM INH SCH ×3 (02:38→21:48)
[2021-09-03 05:57] LABS: Basophils % 0.2 % (0.0-0.8); Eosinophils # 0.1 10*3/uL (0.0-0.87); Eosinophils % 0.4 % (0.00-10.9); Hematocrit 27.3 VOL% (42.0-52.0); Hemoglobin 9.1 GM/DL (14.0-18.0); Immature Granulocytes % 1.6 %; Lymphocytes # 0.5 10*3/uL (1.4-4.0); Lymphocytes % 3.7 % (21.2-54.2); Mean Corpuscular HGB Conc 33.3 GM/DL (32-36); Mean Corpuscular Volume 90.1 FL (87-102); Monocytes % 3.5 % (1.7-12.7); Neutrophils % 90.6 % (38.7-73.9); Platelet Count 179 T/CUMM (130-400); Red Blood Count 3.03 MC/CUMM (3.8-5.5); Red Cell Distribution Width 12.1 % (9.3-17.3); White Blood Count 12.7 T/CUMM (4-12)
[2021-09-03 06:08] LABS: Calcium 8.6 MG/DL (8.5-10.1); Osmolality,Calculated 282.7 MOS/KG (273-304); Potassium 4.7 MMOL/L (3.5-5.1)
[2021-09-03 06:22] LABS: Hypochromia 1+; Lymphocytes 1 % (20-55); Microcytosis 1+; Platelet Estimate Adequate; Segmented Neutrophils 95 % (50-85); Total Cells Counted 100
[2021-09-03] MEDS: INSULIN REGULAR 100 UNIT/ML SUBCUT SCH ×4 (09:48→21:50)
[2021-09-03] MEDS: DOCUSATE SODIUM 100 MG CAPSULE PO SCH ×2 (09:55→21:48)
[2021-09-03] MEDS: FENOFIBRATE 145 MG TABLET PO SCH (09:55)
[2021-09-03] MEDS: ALFUZOSIN 10 MG TABLET PO SCH (09:55)
[2021-09-03] MEDS: CHOLECALCIFEROL 5,000 UNIT TABLET PO SCH (09:55)
[2021-09-03] MEDS: LOSARTAN 50 MG TABLET PO SCH (09:55)
[2021-09-03] MEDS: NYSTATIN 500,000 UNIT/5 ML UDCUP SWISH/SWAL SCH ×2 (09:55→21:49)
[2021-09-03] MEDS: amLODIPine 5 MG TABLET PO SCH (09:56)
[2021-09-03] MEDS: ZINC GLUCONATE 50 MG TABLET PO SCH (09:56)
[2021-09-03] MEDS: ASCORBIC ACID 500 MG TABLET PO SCH ×2 (09:56→21:49)
[2021-09-03] MEDS: SERTRALINE 25 MG TABLET PO SCH (09:56)
[2021-09-03] MEDS: FAMOTIDINE 20 MG TABLET PO SCH ×2 (09:56→21:48)
[2021-09-03] MEDS: FUROSEMIDE 20 MG TABLET PO SCH (09:57)
[2021-09-03] MEDS: APIXABAN 5 MG TABLET PO SCH ×2 (09:57→21:49)
[2021-09-03] MEDS: DEXAMETHASONE 4 MG/1 ML VIAL IV SCH ×2 (09:57→21:49)
[2021-09-03] MEDS: SIMVASTATIN 10 MG TABLET PO SCH (21:49)
[2021-09-03] MEDS: INSULIN GLARGINE 100 UNIT/ML SUBCUT SCH (21:50)
[2021-09-04] MEDS: ALBUTEROL INHALER 18 GM INH SCH ×5 (00:19→18:01)
[2021-09-04] MEDS: DEXTROSE 5% 1,000 ML IV SCH (07:32)
[2021-09-04] MEDS: INSULIN REGULAR 100 UNIT/ML SUBCUT SCH ×4 (07:33→22:06)
[2021-09-04 07:47] LABS: Basophils % 0.1 % (0.0-0.8); Eosinophils # 0.1 10*3/uL (0.0-0.87); Eosinophils % 0.4 % (0.00-10.9); Hematocrit 27.1 VOL% (42.0-52.0); Hemoglobin 9.1 GM/DL (14.0-18.0); Immature Granulocytes % 1.1 %; Immature Granulocytes Absolute 0.15 #; Lymphocytes # 0.7 10*3/uL (1.4-4.0); Lymphocytes % 5.2 % (21.2-54.2); Mean Corpuscular HGB Conc 33.6 GM/DL (32-36); Mean Platelet Volume 13.8 FL (9.6-12.0); Monocytes % 4.1 % (1.7-12.7); Neutrophils % 89.1 % (38.7-73.9); Platelet Count 158 T/CUMM (130-400); Red Blood Count 3.01 MC/CUMM (3.8-5.5); Red Cell Distribution Width 12.1 % (9.3-17.3); White Blood Count 14.1 T/CUMM (4-12)
[2021-09-04 07:52] LABS: Calcium 8.6 MG/DL (8.5-10.1); Osmolality,Calculated 281.7 MOS/KG (273-304); Potassium 4.6 MMOL/L (3.5-5.1)
[2021-09-04] MEDS: FUROSEMIDE 20 MG TABLET PO SCH (08:47)
[2021-09-04] MEDS: ALFUZOSIN 10 MG TABLET PO SCH (08:47)
[2021-09-04] MEDS: LOSARTAN 50 MG TABLET PO SCH (08:47)
[2021-09-04] MEDS: ASCORBIC ACID 500 MG TABLET PO SCH ×2 (08:48→22:05)
[2021-09-04] MEDS: FENOFIBRATE 145 MG TABLET PO SCH (08:48)
[2021-09-04] MEDS: CHOLECALCIFEROL 5,000 UNIT TABLET PO SCH (08:48)
[2021-09-04] MEDS: ACETAMINOPHEN 325 MG TABLET PO PRN ×2 (08:48→17:58)
[2021-09-04] MEDS: amLODIPine 5 MG TABLET PO SCH (08:48)
[2021-09-04] MEDS: ZINC GLUCONATE 50 MG TABLET PO SCH (08:48)
[2021-09-04] MEDS: APIXABAN 5 MG TABLET PO SCH ×2 (08:48→22:05)
[2021-09-04] MEDS: NYSTATIN 500,000 UNIT/5 ML UDCUP SWISH/SWAL SCH ×3 (08:48→22:05)
[2021-09-04] MEDS: DOCUSATE SODIUM 100 MG CAPSULE PO SCH ×2 (08:49→22:04)
[2021-09-04] MEDS: DEXAMETHASONE 4 MG/1 ML VIAL IV SCH ×2 (08:49→22:06)
[2021-09-04] MEDS: SERTRALINE 25 MG TABLET PO SCH (08:49)
[2021-09-04] MEDS: FAMOTIDINE 20 MG TABLET PO SCH ×2 (08:49→22:04)
[2021-09-04 10:19] LABS: Ovalocytes Few; Platelet Estimate Adequate; Polychromasia Slight
[2021-09-04 10:22] LABS: Atypical Lymphocytes Few
[2021-09-04] MEDS: SIMVASTATIN 10 MG TABLET PO SCH (22:04)
[2021-09-04] MEDS: INSULIN GLARGINE 100 UNIT/ML SUBCUT SCH (22:06)
[2021-09-05] MEDS: ALBUTEROL INHALER 18 GM INH SCH ×5 (02:00→21:40)
[2021-09-05] MEDS: FENOFIBRATE 145 MG TABLET PO SCH (08:08)
[2021-09-05] MEDS: DEXAMETHASONE 4 MG/1 ML VIAL IV SCH ×2 (08:08→20:00)
[2021-09-05] MEDS: FAMOTIDINE 20 MG TABLET PO SCH ×2 (08:08→20:00)
[2021-09-05] MEDS: LOSARTAN 50 MG TABLET PO SCH (08:08)
[2021-09-05] MEDS: ALFUZOSIN 10 MG TABLET PO SCH (08:09)
[2021-09-05] MEDS: DOCUSATE SODIUM 100 MG CAPSULE PO SCH ×2 (08:09→20:00)
[2021-09-05] MEDS: APIXABAN 5 MG TABLET PO SCH ×2 (08:09→20:00)
[2021-09-05] MEDS: NYSTATIN 500,000 UNIT/5 ML UDCUP SWISH/SWAL SCH ×4 (08:09→20:00)
[2021-09-05] MEDS: amLODIPine 5 MG TABLET PO SCH (08:09)
[2021-09-05] MEDS: FUROSEMIDE 20 MG TABLET PO SCH (08:09)
[2021-09-05] MEDS: ASCORBIC ACID 500 MG TABLET PO SCH ×2 (08:09→20:00)
[2021-09-05] MEDS: SERTRALINE 25 MG TABLET PO SCH (08:09)
[2021-09-05] MEDS: ZINC GLUCONATE 50 MG TABLET PO SCH (08:09)
[2021-09-05] MEDS: CHOLECALCIFEROL 5,000 UNIT TABLET PO SCH (08:10)
[2021-09-05] MEDS: INSULIN REGULAR 100 UNIT/ML SUBCUT SCH ×4 (10:11→21:40)
[2021-09-05] MEDS ORDERED: FUROSEMIDE 20 MG/2 ML VIAL IV ONE (13:28)
[2021-09-05] MEDS: SIMVASTATIN 10 MG TABLET PO SCH (20:00)
[2021-09-05] MEDS: INSULIN GLARGINE 100 UNIT/ML SUBCUT SCH (21:40)
[2021-09-05] MEDS: LORazepam 1 MG TABLET PO PRN (23:15)
[2021-09-06] MEDS: ALBUTEROL INHALER 18 GM INH SCH ×5 (01:30→22:37)
[2021-09-06] MEDS: DOCUSATE SODIUM 100 MG CAPSULE PO SCH ×2 (10:43→22:35)
[2021-09-06] MEDS: INSULIN REGULAR 100 UNIT/ML SUBCUT SCH ×3 (10:43→15:57)
[2021-09-06] MEDS: FUROSEMIDE 20 MG TABLET PO SCH (10:44)
[2021-09-06] MEDS: LOSARTAN 50 MG TABLET PO SCH (10:44)
[2021-09-06] MEDS: NYSTATIN 500,000 UNIT/5 ML UDCUP SWISH/SWAL SCH ×5 (10:44→22:36)
[2021-09-06] MEDS: DEXAMETHASONE 4 MG/1 ML VIAL IV SCH ×2 (10:44→22:36)
[2021-09-06] MEDS: APIXABAN 5 MG TABLET PO SCH ×2 (10:44→22:36)
[2021-09-06] MEDS: ALFUZOSIN 10 MG TABLET PO SCH (10:45)
[2021-09-06] MEDS: ASCORBIC ACID 500 MG TABLET PO SCH ×2 (10:45→22:37)
[2021-09-06] MEDS: amLODIPine 5 MG TABLET PO SCH (10:45)
[2021-09-06] MEDS: FAMOTIDINE 20 MG TABLET PO SCH ×2 (10:45→22:36)
[2021-09-06] MEDS: FENOFIBRATE 145 MG TABLET PO SCH (10:45)
[2021-09-06] MEDS: SERTRALINE 25 MG TABLET PO SCH (10:46)
[2021-09-06] MEDS: ZINC GLUCONATE 50 MG TABLET PO SCH (10:46)
[2021-09-06] MEDS: CHOLECALCIFEROL 5,000 UNIT TABLET PO SCH (10:46)
[2021-09-06] MEDS: LORazepam 1 MG TABLET PO PRN ×2 (11:48→22:35)
[2021-09-06] MEDS ORDERED: KETOROLAC 30 MG/1 ML VIAL IV ONE (12:00)
[2021-09-06] MEDS: INSULIN GLARGINE 100 UNIT/ML SUBCUT SCH (22:36)
[2021-09-06] MEDS: SIMVASTATIN 10 MG TABLET PO SCH (22:37)
[2021-09-07] MEDS: LORazepam 1 MG TABLET PO PRN (04:08)
[2021-09-07] MEDS: ALBUTEROL INHALER 18 GM INH SCH ×4 (04:08→22:17)
[2021-09-07] MEDS ORDERED: MORPHINE 4 MG/1 ML VIAL ONE (05:21)
[2021-09-07] MEDS ORDERED: MORPHINE 10 MG/1 ML VIAL IV ONE (05:34)
[2021-09-07] MEDS: INSULIN REGULAR 100 UNIT/ML SUBCUT SCH ×5 (05:39→22:18)
[2021-09-07] MEDS ORDERED: MORPHINE 4 MG/1 ML VIAL IV ONE ×2 (05:44→14:43)
[2021-09-07 06:46] LABS: Basophils % 0.1 % (0.0-0.8); Eosinophils # 0.5 10*3/uL (0.0-0.87); Eosinophils % 2.8 % (0.00-10.9); Immature Granulocytes % 1.2 %; Lymphocytes # 0.7 10*3/uL (1.4-4.0); Lymphocytes % 4.2 % (21.2-54.2); Mean Corpuscular HGB Conc 33.3 GM/DL (32-36); Mean Corpuscular Volume 90.6 FL (87-102); Mean Platelet Volume 12.8 FL (9.6-12.0); Monocytes % 4.4 % (1.7-12.7); Neutrophils % 87.3 % (38.7-73.9); Platelet Count 220 T/CUMM (130-400); Red Blood Count 2.98 MC/CUMM (3.8-5.5); Red Cell Distribution Width 12.6 % (9.3-17.3); White Blood Count 17.1 T/CUMM (4-12)
[2021-09-07 07:00] LABS: Calcium 8.8 MG/DL (8.5-10.1); Osmolality,Calculated 286.8 MOS/KG (273-304); Potassium 4.5 MMOL/L (3.5-5.1)
[2021-09-07 07:09] LABS: Band Neutrophils 1 % (0-10); Eosinophils 2 % (0-10); Hypochromia Slight; Lymphocytes 4 % (20-55); Microcytosis Slight; Platelet Estimate Adequate; Segmented Neutrophils 86 % (50-85); Total Cells Counted 100
[2021-09-07] MEDS: FUROSEMIDE 20 MG TABLET PO SCH (09:20)
[2021-09-07] MEDS: APIXABAN 5 MG TABLET PO SCH ×2 (09:20→22:18)
[2021-09-07] MEDS: ASCORBIC ACID 500 MG TABLET PO SCH ×2 (09:20→22:19)
[2021-09-07] MEDS: ALFUZOSIN 10 MG TABLET PO SCH (09:20)
[2021-09-07] MEDS: SERTRALINE 25 MG TABLET PO SCH (09:20)
[2021-09-07] MEDS: ZINC GLUCONATE 50 MG TABLET PO SCH (09:20)
[2021-09-07] MEDS: DOCUSATE SODIUM 100 MG CAPSULE PO SCH ×2 (09:20→22:18)
[2021-09-07] MEDS: LOSARTAN 50 MG TABLET PO SCH (09:21)
[2021-09-07] MEDS: CHOLECALCIFEROL 5,000 UNIT TABLET PO SCH (09:21)
[2021-09-07] MEDS: FENOFIBRATE 145 MG TABLET PO SCH (09:21)
[2021-09-07] MEDS: NYSTATIN 500,000 UNIT/5 ML UDCUP SWISH/SWAL SCH ×4 (09:22→22:18)
[2021-09-07] MEDS: DEXAMETHASONE 4 MG/1 ML VIAL IV SCH ×2 (09:23→22:18)
[2021-09-07] MEDS: amLODIPine 5 MG TABLET PO SCH (09:24)
[2021-09-07] MEDS: FAMOTIDINE 20 MG TABLET PO SCH ×2 (09:48→22:19)
[2021-09-07] MEDS: MORPHINE 4 MG/1 ML VIAL IV PRN ×2 (19:16→21:50)
[2021-09-07] MEDS: LORazepam 2 MG/1 ML VIAL IV PRN ×2 (20:49→23:55)
[2021-09-07] MEDS: INSULIN GLARGINE 100 UNIT/ML SUBCUT SCH (22:18)
[2021-09-07] MEDS: SIMVASTATIN 10 MG TABLET PO SCH (22:19)
[2021-09-08] MEDS: MORPHINE 4 MG/1 ML VIAL IV PRN ×3 (06:20→14:12)
[2021-09-08] MEDS: ALBUTEROL INHALER 18 GM INH SCH ×3 (06:27→14:23)
[2021-09-08] MEDS: LORazepam 2 MG/1 ML VIAL IV PRN ×3 (07:23→14:12)
[2021-09-08 08:24] VITALS: BP 110/67
[2021-09-08] MEDS: INSULIN REGULAR 100 UNIT/ML SUBCUT SCH ×2 (14:25→14:26)
[2021-09-08] MEDS: DOCUSATE SODIUM 100 MG CAPSULE PO SCH (14:26)
[2021-09-08] MEDS: LOSARTAN 50 MG TABLET PO SCH (14:26)
[2021-09-08] MEDS: SERTRALINE 25 MG TABLET PO SCH (14:26)
[2021-09-08] MEDS: CHOLECALCIFEROL 5,000 UNIT TABLET PO SCH (14:27)
[2021-09-08] MEDS: ASCORBIC ACID 500 MG TABLET PO SCH (14:27)
[2021-09-08] MEDS: ZINC GLUCONATE 50 MG TABLET PO SCH (14:27)
[2021-09-08] MEDS: ALFUZOSIN 10 MG TABLET PO SCH (14:28)
[2021-09-08] MEDS: FENOFIBRATE 145 MG TABLET PO SCH (14:28)
[2021-09-08] MEDS: DEXAMETHASONE 4 MG/1 ML VIAL IV SCH (14:28)
[2021-09-08] MEDS: FAMOTIDINE 20 MG TABLET PO SCH (14:28)
[2021-09-08] MEDS: NYSTATIN 500,000 UNIT/5 ML UDCUP SWISH/SWAL SCH (14:29)
[2021-09-08] MEDS: APIXABAN 5 MG TABLET PO SCH (14:29)
[2021-09-08] MEDS: FUROSEMIDE 20 MG TABLET PO SCH (14:29)
[2021-09-08] MEDS: amLODIPine 5 MG TABLET PO SCH (14:30)
== END 2021-09-08 14:32 | disposition expired | DRG 177 ==
LOC: N.3E 12:54 → N.ED 12:54 → SUATTDRO 15:02 → N.3E 19:28 → SUATTDRO 08-19 10:02
PROVIDERS: ADMIT Internal Medicine; ATTEND Internal Medicine Geriatric Medicine